=== PATIENT | female | born 1955 | race Caucasian/White ===

== ENCOUNTER → 2018-06-12 | Outpatient (REF) | payer OTHER ==
[2018-06-12 13:01] LABS: HEMOGLOBIN A1c 5.8 %
[2018-06-12 13:02] LABS: ALBUMIN 3.6 GM/DL (3.2-5.2); ALT/SGPT 20 U/L (12-78); BILIRUBIN,TOTAL 0.5 MG/DL (0.2-1.0); BLOOD UREA NITROGEN 13 MG/DL (7-18); CALCIUM LEVEL 8.4 MG/DL (8.8-10.2); CARBON DIOXIDE LEVEL 26 MEQ/L (21-32); CHLORIDE LEVEL 108 MEQ/L (98-107); CHOLESTEROL LEVEL 198 MG/DL (<200); CHOLESTEROL RISK RATIO 7.333 (<5); FOLATE 4.8 NG/ML; GLOMERULAR FILTRATION RATE > 60.0 (>45); GLUCOSE, FASTING 115 MG/DL (70-100); HDL CHOLESTEROL 27 MG/DL (>40); LDL CHOLESTEROL 113 MG/DL (<100); NON-HDL-C 171 MG/DL; POTASSIUM SERUM 4.5 MEQ/L (3.5-5.1); SODIUM LEVEL 141 MEQ/L (136-145); TRIGLYCERIDES LEVEL 290 MG/DL (<150); VITAMIN B12 LEVEL 339 PG/ML
== END ==
LOC: M SFHCCLAY 08:23
PROVIDERS: ATTEND Family Medicine
DX: R20.0 Anesthesia of skin (principal); Z13.1 Encounter for screening for diabetes mellitus; Z13.220 Encounter for screening for lipoid disorders; Z82.49 Family history of ischemic heart disease and other diseases of the circulatory system

== ENCOUNTER → 2018-07-09 | Outpatient (CLI) | payer OTHER ==
--- NOTE | 2018-07-09 14:19 | REP ---
BILATERAL LOWER EXTREMITY DUPLEX ARTERIAL ULTRASOUND: Real-time ultrasound evaluation and duplex Doppler interrogation of bilateral lower extremity arterial systems is performed. MIGUEL right is 0.58 and left 1.1. Scattered plaquing and narrowing is seen bilaterally. There is elevated peak systolic velocity in the distal right superficial femoral artery with mild phasic waveforms distal to that consistent with severe stenosis of the right distal SFA. No significant stenosis is seen of the left lower extremity arterial system. Biphasic, triphasic waveforms are seen in the right common femoral artery and proximal superficial femoral artery and throughout the left lower extremity arterial system. Right Peak Left Peak Systolic Velocity Systolic velocity Common femoral artery 95.5 cm/s 107.0 cm/s Profunda 103.0 cm/s 55.6 cm/s Proximal SFA 40.3 cm/s 91.5 cm/s Mid SFA 40.3 cm/s 77.7 cm/s Distal SFA 326.0 cm/s 88.6 cm/s Popliteal 34.3 cm/s 73.2 cm/s Proximal JORDAN 16.9 cm/s 25.0 cm/s Tibial peroneal trunk 16.2 cm/s 64.4 cm/s Proximal M48 M60 ARMOR CREWMAN 16.5 cm/s 62.7 cm/s Distal M48 M60 ARMOR CREWMAN 11.7 cm/s 47.6 cm/s Distal JORDAN 21.7 cm/s 34.0 cm/s IMPRESSION: Significant stenosis distal right SFA. No Duplex Doppler sonographic evidence of significant stenosis left lower extremity arterial system. Electronically Signed by Troy Mohan MD 07/09/2018 03:27 P
== END ==
LOC: M RAD 09:31
PROVIDERS: ATTEND Family Medicine
DX: R20.9 Unspecified disturbances of skin sensation (principal); R09.89 Other specified symptoms and signs involving the circulatory and respiratory systems; I70.201 Unspecified atherosclerosis of native arteries of extremities, right leg

== ENCOUNTER → 2018-07-23 | Outpatient (REF) | payer OTHER, SELFPAY ==
[2018-07-26 15:14] LABS: HPV HYBRID CAPTURE II Negative (Negative)
== END ==
LOC: M SFHCCLAY 07:32
PROVIDERS: ATTEND Family Medicine
DX: Z12.4 Encounter for screening for malignant neoplasm of cervix (principal)

== ENCOUNTER → 2018-12-26 | Outpatient (REF) | payer MEDICAID ==
[2018-12-26 16:39] LABS: BLOOD UREA NITROGEN 19 MG/DL (7-18); CALCIUM LEVEL 9.1 MG/DL (8.8-10.2); CARBON DIOXIDE LEVEL 30 MEQ/L (21-32); CHLORIDE LEVEL 104 MEQ/L (98-107); CREATININE FOR GFR 0.83 MG/DL (0.55-1.30); GLOMERULAR FILTRATION RATE > 60.0 (>45); GLUCOSE, FASTING 101 MG/DL (70-100); POTASSIUM SERUM 4.3 MEQ/L (3.5-5.1); SODIUM LEVEL 141 MEQ/L (136-145)
[2018-12-26 16:46] LABS: HEMATOCRIT 47.3 % (36.0-47.0); HEMOGLOBIN 15.8 g/dl (12.0-15.5); MEAN CORPUSCULAR HEMOGLOBIN 31.7 pg (27.0-33.0); MEAN CORPUSCULAR HGB CONC 33.4 g/dl (32.0-36.5); PLATELET COUNT, AUTOMATED 372 10^3/uL (150-450); RED BLOOD COUNT 4.98 10^6/uL (4.00-5.40); WHITE BLOOD COUNT 10.2 10^3/uL (4.0-10.0)
== END ==
LOC: M LABDRAWC 16:18
PROVIDERS: ATTEND Physician Assistant
DX: M79.671 Pain in right foot (principal); M79.672 Pain in left foot; I70.291 Other atherosclerosis of native arteries of extremities, right leg

== ENCOUNTER → 2019-01-30 | Outpatient (CLI) | payer OTHER ==
[~2019-01-30] MED LIST: ASPI81TA85 PO; HEPARIN 1,000 UNITS/ML 10ML VIAL (FOR RADIOLOGY& DIALYSIS ONLY) As Ordered ONE; ISOVUE-300 61% 50ML VIAL (Q9967) As Ordered ONE; LIDOCAINE 1% MDV 20ML VIAL As Ordered ONE; MIDAZOLAM INJ 2 MG/2 ML VIAL (J2250) As Ordered ONE; fentaNYL 100 MCG/2 ML INJECTION (J3010) As Ordered ONE; tylenol PO
[2019-01-30 07:47] LABS: ALBUMIN 3.3 GM/DL (3.2-5.2); ALT/SGPT 18 U/L (12-78); BILIRUBIN,TOTAL 0.4 MG/DL (0.2-1.0); BLOOD UREA NITROGEN 10 MG/DL (7-18); CALCIUM LEVEL 8.4 MG/DL (8.8-10.2); CARBON DIOXIDE LEVEL 26 MEQ/L (21-32); CHLORIDE LEVEL 108 MEQ/L (98-107); CREATININE FOR GFR 0.85 MG/DL (0.55-1.30); GLOMERULAR FILTRATION RATE > 60.0 (>45); GLUCOSE, FASTING 103 MG/DL (70-100); POTASSIUM SERUM 4.9 MEQ/L (3.5-5.1); SODIUM LEVEL 143 MEQ/L (136-145); TOTAL PROTEIN 6.6 GM/DL (6.4-8.2)
--- NOTE | 2019-01-30 08:20 | ROOPDOC ---
[facility] Report Of Operation Report of Operation DATE OF PROCEDURE: 01/30/19 PREPROCEDURE DIAGNOSES: Atherosclerosis the eek vessels with pain in legs. POSTPROCEDURE DIAGNOSES: Same. PROCEDURE: 1. Ultrasound-guided access right common femoral artery 2. Left lower extremity arteriogram from selection of left common femoral artery SURGEON: Joey Solano MD ANESTHESIA: Local anesthesia of 5 mL lidocaine. Moderate intravenous conscious sedation was supervised by Dr. Solano. The patient was independent we monitored by a registered nurse and signed in the department of radiology using automated blood pressure, EKG, and pulse oximetry. The detailed sedation record is permanently stored in the hospital information system. The following is the brief sedation record: Start time 07:48, stop time 08:02, Versed 1 mg IV, fentanyl 25 g IV. INDICATION FOR PROCEDURE: Ms. Orantes is a very pleasant 63-year-old patient who is status post right lower extremity arteriogram and intervention and now returns for arteriogram of the left lower extremity with potential intervention. The patient has symptoms in her legs and feet that are not consistent with arterial insufficiency, however if we can improve her symptoms at all by improving arterial flow we certainly would like to do so. On the right lower extremity, we did significantly improve her flow, but she still has some symptoms in the right leg. She says it is somewhat better. Hopefully we can offer her some relief in the left lower extremities well. Risks benefits and alternatives were explained to the patient and she is agreeable to proceed. Informed consent was obtained. INTERPRETATION: 1. Inflow was seen to be widely patent and left lower extremity on previous imaging. Her left common femoral artery, profunda, SFA are all widely patent. She has excellent runoff through to the profunda with 3 vessel runoff to the foot. The pedal arteries are widely patent. No stenoses noted and no intervention required. REPORT OF OPERATION: The patient was brought the angiographic suite in stable condition placed supine on the fluoroscopic table. Her bilateral groins were prepped and draped in sterile fashion. A timeout was performed. 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 Local anesthesia was administered to the skin and subcutaneous tissue over the right common femoral artery and a microneedle was used to access the artery under ultrasound guidance. A wire was passed through this access and the needle was removed. The micro-sheath was placed. The Glidewire was advanced through this access into the central system under fluoroscopic guidance. The sheath was exchanged for 6 Greenlandic sheath. A contractor catheter was advanced over the wire and we went up and over the bifurcation and the contrast catheter was advanced into the left common femoral artery. An arteriogram of the left lower extremity was performed please see in terpretation above. No intervention was needed. We retracted the catheter over wire and placed a Mynx closure device with good hemostasis. Pressure was held for 10 minutes and the patient was taken to recovery in stable condition. She tolerated the procedure well with no consultations. ESTIMATED BLOOD LOSS: Approximately 3 mL. COMPLICATIONS: None. PLAN: We will see the patient back in a week to check her access site. She will have a follow-up arterial duplex of the bilateral lower extremities in 1 month. She will follow up with Dr. Mooney regarding her foot pain. Okay to resume all home medications. JOEY SOLANO MD Jan 30, 2019 08:20
[2019-01-30 11:45] VITALS: BP 103/60
== END ==
LOC: M IRPRO 06:20
PROVIDERS: ATTEND Surgery Vascular Surgery
DX: I70.222 Atherosclerosis of native arteries of extremities with rest pain, left leg (principal); I70.212 Atherosclerosis of native arteries of extremities with intermittent claudication, left leg
CPT/HCPCS: 36246; 75710; 80053; 99152; C1760; C1769; C1887; C1894; G0269; J2250; J3010; Q9967

== ENCOUNTER → 2019-02-13 | Outpatient (REF) | payer OTHER ==
[~2019-02-13] MED LIST changes: -HEPARIN 1,000 UNITS/ML 10ML VIAL (FOR RADIOLOGY& DIALYSIS ONLY) As Ordered ONE; -ISOVUE-300 61% 50ML VIAL (Q9967) As Ordered ONE; -LIDOCAINE 1% MDV 20ML VIAL As Ordered ONE; -MIDAZOLAM INJ 2 MG/2 ML VIAL (J2250) As Ordered ONE; -fentaNYL 100 MCG/2 ML INJECTION (J3010) As Ordered ONE
[2019-03-16 12:21] LABS: THYROID STIMULATING HORMONE 2.08 uIU/ML (0.358-3.740)
[2019-03-16 12:23] LABS: FOLATE 2.6 NG/ML
== END ==
LOC: M SFHCCLAY 10:45
PROVIDERS: ATTEND Family Medicine
DX: G62.9 Polyneuropathy, unspecified (principal)

== ENCOUNTER → 2019-03-06 | Outpatient (CLI) | payer OTHER ==
--- NOTE | 2019-03-06 15:40 | REP ---
Bilateral lower extremity arterial Doppler ultrasound for claudication: Comparison is 07/09/2018. Right lower extremity: Brachial artery peak systole: 140 mmHg. Dorsalis pedis peak systole: 80 mmHg. INTERRELATED SPECIAL EDUCATION TEACHER peak systole: 30 mmHg. MIGUEL: 0.57 Peak Systolic Phasicity Velocity CRACKING STILL OPERATOR 182 triphasic Profunda 163 biphasic SFA prox occluded -- SFA mid occluded -- SFA dist occluded -- Pop 22 monophasic JORDAN prox 14 monophasic Tib/P tr 19 monophasic INTERRELATED SPECIAL EDUCATION TEACHER pr 13 monophasic INTERRELATED SPECIAL EDUCATION TEACHER dst 7 monophasic JORDAN dst 21 monophasic the Left lower extremity: The brachial artery peak systole: 140 mmHg. Dorsalis pedis peak systole: 100 mmHg. INTERRELATED SPECIAL EDUCATION TEACHER peak systole: 40 mmHg. MIGUEL: 0.71. Peak Systolic Phasicity Velocity CRACKING STILL OPERATOR 138 monophasic Profunda 55 monophasic SFA prox 66 monophasic SFA mid 67 monophasic SFA dist 82 monophasic Pop 110 monophasic JORDAN prox 17 monophasic Tib/P tr 54 monophasic INTERRELATED SPECIAL EDUCATION TEACHER pr 29 monophasic INTERRELATED SPECIAL EDUCATION TEACHER dst monophasic JORDAN dst 55 monophasic Impression: Right lower extremity: The SFA is occluded proximal to distal, however there is revascularization of the distal SFA/popliteal. There is monophasic flow throughout below the popliteal with a very slow flow distal to the popliteal, worse than the comparison study. Left lower extremity: There is monophasic flow throughout the entire left lower extremity. There is slow flow in the SFA that demonstrates an approximate 2:1 stenosis. Flow in the calf vessels is slow, particularly in the INTERRELATED SPECIAL EDUCATION TEACHER. This is also significantly worse than the prior study. Electronically Signed by Troy Boothe MD 03/06/2019 03:31 P
== END ==
LOC: M RAD 11:45
PROVIDERS: ATTEND Physician Assistant
DX: I70.213 Atherosclerosis of native arteries of extremities with intermittent claudication, bilateral legs (principal)

== ENCOUNTER → 2019-03-12 | Outpatient (REF) | payer OTHER ==
[2019-03-12 16:54] LABS: BLOOD UREA NITROGEN 10 MG/DL (7-18); C REACTIVE PROTEIN QUANTITATIV 1.51 MG/DL (0.00-0.30); CALCIUM LEVEL 8.5 MG/DL (8.8-10.2); CARBON DIOXIDE LEVEL 30 MEQ/L (21-32); CHLORIDE LEVEL 104 MEQ/L (98-107); CREATININE FOR GFR 0.77 MG/DL (0.55-1.30); GLOMERULAR FILTRATION RATE > 60.0 (>45); GLUCOSE, FASTING 96 MG/DL (70-100); POTASSIUM SERUM 4.3 MEQ/L (3.5-5.1); SODIUM LEVEL 139 MEQ/L (136-145)
[2019-03-12 16:59] LABS: HEMATOCRIT 41.7 % (36.0-47.0); MEAN CORPUSCULAR HEMOGLOBIN 31.7 pg (27.0-33.0); MEAN CORPUSCULAR HGB CONC 33.6 g/dl (32.0-36.5); MEAN CORPUSCULAR VOLUME 94.6 fl (80.0-96.0); PLATELET COUNT, AUTOMATED 367 10^3/uL (150-450); RED BLOOD COUNT 4.41 10^6/uL (4.00-5.40); WHITE BLOOD COUNT 9.8 10^3/uL (4.0-10.0)
[2019-03-12 17:36] LABS: ERYTHROCYTE SEDIMENTATION RATE 30 mm/hr (0-30)
== END ==
LOC: M LABDRAWC 16:05
PROVIDERS: ATTEND Physician Assistant
DX: I73.9 Peripheral vascular disease, unspecified (principal); M79.604 Pain in right leg; G62.9 Polyneuropathy, unspecified

== ENCOUNTER → 2019-04-15 | Outpatient (CLI) | payer OTHER ==
[~2019-04-15] MED LIST changes: +ACETAMINOPHEN 325 MG TAB PO PRN; +CLOP75TA2 PO; +CLOPIDOGREL 75 MG TAB As Ordered ONE; +CLOPIDOGREL 75 MG TAB PO ONE; +GABA-843 PO; +HEPARIN 1,000 UNITS/ML 10ML VIAL (FOR RADIOLOGY& DIALYSIS ONLY)(J1644-10) As Ordered ONE; +ISOVUE-300 61% 50ML VIAL (Q9967) As Ordered ONE; +LIDOCAINE 1% MDV 20ML VIAL As Ordered ONE; +MIDAZOLAM INJ 2 MG/2 ML VIAL (J2250) As Ordered ONE; +NS 1,000 ML IV SCH; +fentaNYL 100 MCG/2 ML INJECTION (J3010) As Ordered ONE
[2019-04-15 07:01] LABS: HEMATOCRIT 45.6 % (36.0-47.0); HEMOGLOBIN 14.9 g/dl (12.0-15.5); MEAN CORPUSCULAR HEMOGLOBIN 30.8 pg (27.0-33.0); MEAN CORPUSCULAR HGB CONC 32.7 g/dl (32.0-36.5); MEAN CORPUSCULAR VOLUME 94.4 fl (80.0-96.0); PLATELET COUNT, AUTOMATED 347 10^3/uL (150-450); RED BLOOD COUNT 4.83 10^6/uL (4.00-5.40); WHITE BLOOD COUNT 8.4 10^3/uL (4.0-10.0)
[2019-04-15 07:25] LABS: BLOOD UREA NITROGEN 21 MG/DL (7-18); CALCIUM LEVEL 8.7 MG/DL (8.8-10.2); CARBON DIOXIDE LEVEL 29 MEQ/L (21-32); CHLORIDE LEVEL 106 MEQ/L (98-107); CREATININE FOR GFR 0.78 MG/DL (0.55-1.30); GLOMERULAR FILTRATION RATE > 60.0 (>45); GLUCOSE, FASTING 115 MG/DL (70-100); POTASSIUM SERUM 4.3 MEQ/L (3.5-5.1); SODIUM LEVEL 142 MEQ/L (136-145)
--- NOTE | 2019-04-15 09:44 | ROOPDOC ---
[facility] Report Of Operation Report of Operation DATE OF PROCEDURE: 04/15/19 PREPROCEDURE DIAGNOSES: Atherosclerosis of the [place] vessels with lifestyle limiting claudication POSTPROCEDURE DIAGNOSES: Same PROCEDURE: 1. Ultrasound-guided access left common femoral artery 2. Aortoiliofemoral arteriogram and right lower extremity runoff from selection of the right common femoral artery 3. Attempt to cross chronic total occlusion right superficial femoral artery, aborted 4. Stent right common iliac artery with 8 x 37 express stent 5. Stent left common iliac artery with 8 x 57 express stent and extension to mid external iliac artery with 7 x 37 express stent and 6 x 37 express stent 6. Completion arteriograms 7. Mynx closure left common femoral artery SURGEON: Joey Solano MD ANESTHESIA: Local anesthesia 7 mL lidocaine. Moderate intravenous conscious sedation was supervised by Dr. Solano. The patient was independently monitored by registered nurse assigned to the Department of radiology using automated blood pressure, EKG, and pulse oximetry. The detailed sedation record is permanently stored in the hospital information system. The following is the brief sedation record: Start time 07:54, stop time 08:55, Versed 1 mg IV, fentanyl 50 g IV, heparin 3000 units IV. CONTRAST: 60 mL Isovue-300 INDICATION FOR PROCEDURE: This is a very pleasant 63-year-old patient who underwent angioplasty of her right superficial femoral artery a few months ago and was noted on follow-up arterial duplex to have occlusion of the SFA status post angioplasty. The patient has very small vessels, with significant plaque, b ut her post angioplasty images did not show residual stenosis and we elected not to place a stent at her last procedure. I discussed with her that if we're able to open the right superficial femoral artery, we will definitely stent at this time, but because her vessel sizes so diminutive below the groin, I'm worried that over time she may need a bypass. I discussed with her the option to proceed directly to bypass but the patient would prefer to try an endovascular approach first. I think this is reasonable. Additionally, we discussed that she did have some mild iliac stenosis that if this also looks worse today, we would plan to stent her iliacs to improve inflow. She is agreeable to this plan. Informed consent was obtained. INTERPRETATION: 1. The distal aorta is widely patent but there is a 50% stenosis a few centimeters distal to the right common iliac origin, and an 80% stenosis in the left common iliac artery with no post stenotic dilatation, but instead the vessel is diffusely narrowed down through the external iliac artery. 2. The right common femoral artery and profunda are widely patent. The origin of the right SFA is not visualized, but the SFA does reconstitute at David's canal through collaterals from the profunda, and there is widely patent inflow through the popliteal and tibial vessels, although they are all diminutive in size. 3. The origin of the right superficial femoral artery could not be visualized, but we attempted to cannulate it blindly for about 15 minutes, and then aborted. We will plan to do a right femoral to above-knee popliteal bypass. 4. After balloon-expandable stent placement in the right common iliac artery, the vessel had widely patent flow with no extravasation, embolization, or dissection. No residual stenosis noted. 5. Balloon-expandable stents were placed in the left common iliac artery and extended through to the mid distal external iliac artery with 1 cm overlap, starting with an 8 x 57 express proximally, 7 x 37 express mid, 6 x 37 express distally and there was widely patent flow post stenting with no dissection embolization or extravasation noted. No residual stenosis noted. REPORT OF OPERATION: The patient was brought the angiographic suite in stable condition. Her bilateral groins were prepped and draped in sterile fashion. A timeout was performed. Sedation was administered without compensation. Local anesthesia was administered to the skin and subcutaneous tissue over the left groin and a microneedle was used to access the left common femoral artery under ultrasound guidance. A wire was passed through this access under fluoroscopic guidance and a 4 Australian micro-sheath was placed and flushed with saline. We advanced Glidewire into the right under fluoroscopic guidance and an Omni flushed catheter was advanced over the wire. Aortoiliofemoral arteriograms were performed. Please interpretation above. We then went up and over the bifurcation with the Glidewire and on the flush catheter and selected the right common femoral artery. The right lower extremity runoff was performed. Please interpretation above. We exchanged the sheath for a 45 cm destination 6 Australian sheath over the wire using the Seldinger technique. We spent a considerable amount of time trying to cross into the origin of the occluded right superficial femoral artery, but unfortunately, we were unsuccessful. He could not visualize the origin, but did try to cannulate blindly, but were ultimately unsuccessful and this was aborted. We plan to do a right common femoral to above-knee popliteal bypass in the future. We then retracted the sheath to the aortic bifurcation and advanced an 8 x 37 express stent across the right common iliac stenosis. Adequate contrast injection confirmed the stent was in correct position and this was deployed under fluoroscopic guidance. Following this, there was widely patent flow through the right iliac system with no extravasation embolization or dissection. We then retracted the sheath into the mid left iliac system and advanced in 8 x 57 express stent across the common iliac artery up to but not through the origin. Placement of the stent was confirmed with adequate contrast injection. The stent was then deployed under fluoroscopic guidance. We did then exchanged that 6 Australian destination sheath for a 7 Australian sheath and flushed the sheath with saline. We then placed a 7 x 37 express stent with a 1 cm overlap, and extended this into the external iliac artery with a 6 x 37 express stent. All were postdilated with a 7 x 37 balloon. While placing the 7 x 37 express stent, the patient had an episode of bradycardia. We positive for a few minutes until her heart rate recovered. She remained asymptomatic but her heart rate was in the 40s for a minute. By the end of the procedure, her heart rate and blood pressure were both normal. She remained asymptomatic. No additional sedation was given during the case, only the initial sedation given prior to access. Following this there was widely patent flow through the left iliac system with no extravasation embolization or dissection noted. No residual stenosis was noted. Final imaging showed widely patent flow through both iliac systems and we then deployed and Mynx closure device in the left common femoral artery under fluoroscopic guidance with good hemostasis. Pressure was held on the left groin and sterile dressings were applied and the patient was taken to recovery in stable condition. ESTIMATED BLOOD LOSS: Approximately 5 mL. COMPLICATIONS: None. PLAN: Okay for patient to resume home medications and diet. We will give her a dose of Plavix in recovery, and she will continue this for 60 days process procedure. She will need a right femoral to above-knee popliteal bypass, and we will see her back in clinic to discuss the procedure. We will obtain a vein mapping of the lower extremities today while the patient is on postprocedure bed rest. She will need a stress test prior to the procedure with the cardiac clearance. We appreciate the opportunity to participate in the care of this patient. JOEY SOLANO MD Apr 15, 2019 09:44
--- NOTE | 2019-04-15 11:21 | REP ---
BILATERAL LOWER EXTREMITY DEEP VENOUS ULTRASOUND WITH VENOUS MAPPING: Real-time compression and duplex Doppler interrogation of bilateral lower extremity deep venous systems is performed. The bilateral common femoral, superficial femoral and popliteal veins are fully compressible with transducer pressure and demonstrate normal spontaneous and phasic flow without evidence of deep venous thrombosis. Measurements of the bilateral deep venous structures is requested. On the right greater saphenous vein measures 6 mm proximally, 3 mm in the mid to distal aspect, and at the level of the proximal calf, 1 mm in the mid calf and 2 mm in distal calf. The lesser saphenous vein measures 4 mm in the proximal and mid aspect and 3 mm distally. On the left the proximal greater saphenous vein measures 6 mm, mid aspect 4 mm, distal aspect 3 mm, also 3 mm in the proximal calf and 2 mm in the mid to distal calf. The lesser saphenous vein measures 3 mm throughout its course. Electronically Signed by Troy Mohan MD 04/15/2019 03:57 P
[2019-04-15 13:00] VITALS: BP 139/69
== END ==
LOC: M IRPRO 06:18
PROVIDERS: ATTEND Surgery Vascular Surgery
DX: I70.213 Atherosclerosis of native arteries of extremities with intermittent claudication, bilateral legs (principal); I70.92 Chronic total occlusion of artery of the extremities
CPT/HCPCS: 37221; 37223; 75710; 80048; 85027; 93970; 99152; 99153; C1760; C1769; C1876; C1887; C1894; J1644; J2250; J3010; Q9967

== ENCOUNTER → 2019-04-28 | Outpatient (REF) | payer OTHER ==
[~2019-04-28] MED LIST changes: -ACETAMINOPHEN 325 MG TAB PO PRN; -CLOPIDOGREL 75 MG TAB As Ordered ONE; -CLOPIDOGREL 75 MG TAB PO ONE; -HEPARIN 1,000 UNITS/ML 10ML VIAL (FOR RADIOLOGY& DIALYSIS ONLY)(J1644-10) As Ordered ONE; -ISOVUE-300 61% 50ML VIAL (Q9967) As Ordered ONE; -LIDOCAINE 1% MDV 20ML VIAL As Ordered ONE; -MIDAZOLAM INJ 2 MG/2 ML VIAL (J2250) As Ordered ONE; -NS 1,000 ML IV SCH; -fentaNYL 100 MCG/2 ML INJECTION (J3010) As Ordered ONE
[2019-04-28 15:48] LABS: HEMOGLOBIN A1c 5.8 %
[2019-04-28 15:56] LABS: RHEUMATOID FACTOR QUANT < 10.0 IU/ML (<15.0); TOTAL PROTEIN 7.4 GM/DL (6.4-8.2)
[2019-04-30 14:25] LABS: ALBUMIN 4.14 GM/DL (3.29-5.55); ALBUMIN % 55.9 % (55.8-66.1); ALPHA-1-GLOBULIN % 6.1 % (2.9-4.9); ALPHA-1-GLOBULINS 0.45 GM/DL (0.17-0.41); ALPHA-2-GLOBULINS 0.94 GM/DL (0.42-0.99); ALPHA-2-GLOBULINS % 12.7 % (7.1-11.8); BETA-1-GLOBULINS 0.48 GM/DL (0.28-0.60); BETA-1-GLOBULINS % 6.5 % (4.7-7.2); BETA-2-GLOBULINS 0.64 GM/DL (0.19-0.55); BETA-2-GLOBULINS % 8.7 % (3.2-6.5); GAMMA GLOBULIN % 10.1 % (11.1-18.8); GAMMA GLOBULINS 0.75 GM/DL (0.65-1.58)
== END ==
LOC: M LABNEURO 15:06
PROVIDERS: ATTEND Psychiatry & Neurology Neurology
DX: G62.9 Polyneuropathy, unspecified (principal)

== ENCOUNTER 2019-05-13 09:52 | Emergency (ER) | payer OTHER ==
[~2019-05-13] VITALS: Ht 157.5 cm; Wt 55.9 kg
[2019-05-13 11:01] LABS: BASO # 0.1 10^3/uL (0.0-0.2); BASO % 0.5 % (0.0-1.0); EOS # 0.1 10^3/uL (0.0-0.5); EOS % 0.4 % (0.0-3.0); HEMOGLOBIN 13.4 g/dl (12.0-15.5); LYMPH # 1.4 10^3/uL (1.5-5.0); LYMPH % 11.5 % (24.0-44.0); MEAN CORPUSCULAR HEMOGLOBIN 31.1 pg (27.0-33.0); MEAN CORPUSCULAR HGB CONC 33.5 g/dl (32.0-36.5); MEAN CORPUSCULAR VOLUME 92.8 fl (80.0-96.0); MONO # 0.8 10^3/uL (0.0-0.8); MONO % 7.1 % (0.0-5.0); NEUTROPHILS # 9.4 10^3/uL (1.5-8.5); NEUTROPHILS % 80.1 % (36.0-66.0); PLATELET COUNT, AUTOMATED 380 10^3/uL (150-450); RED BLOOD COUNT 4.31 10^6/uL (4.00-5.40); WHITE BLOOD COUNT 11.7 10^3/uL (4.0-10.0)
[2019-05-13 11:14] LABS: INR 1.04; PROTHROMBIN TIME 13.3 SECONDS (11.8-14.0)
--- NOTE | 2019-05-13 11:32 | REP ---
CHEST, SINGLE VIEW: There is no evidence of acute infiltrate. No pleural effusion is seen. The heart is normal in size. The mediastinal silhouette is unremarkable. The visualized osseous structures are intact. IMPRESSION: No acute pulmonary disease. Electronically Signed by Troy Mohan MD 05/13/2019 11:42 A
[2019-05-13 11:42] LABS: ALBUMIN 3.5 GM/DL (3.2-5.2); ALT/SGPT 33 U/L (12-78); BILIRUBIN,DIRECT 0.1 MG/DL (0.0-0.2); BILIRUBIN,TOTAL 0.4 MG/DL (0.2-1.0); BLOOD UREA NITROGEN 11 MG/DL (7-18); CALCIUM LEVEL 8.9 MG/DL (8.8-10.2); CARBON DIOXIDE LEVEL 27 MEQ/L (21-32); CHLORIDE LEVEL 105 MEQ/L (98-107); CK-MB VALUE MASS 24.2 NG/ML (<3.6); CPK CREATINE PHOSPHOKINASE 103 U/L (26-192); CREATININE FOR GFR 0.65 MG/DL (0.55-1.30); GLOMERULAR FILTRATION RATE > 60.0 (>45); GLUCOSE, FASTING 103 MG/DL (70-100); NT-PRO BNP 872 PG/ML (<125); POTASSIUM SERUM 4.3 MEQ/L (3.5-5.1); SODIUM LEVEL 137 MEQ/L (136-145); TOTAL PROTEIN 7.1 GM/DL (6.4-8.2); TROPONIN I < 0.02 NG/ML (< 0.10)
--- NOTE | 2019-05-13 11:52 | REP ---
BILATERAL SHOULDER SERIES: Three views of bilateral shoulders performed. No fracture or dislocation is seen. There is fairly severe narrowing of the right acromioclavicular joint with moderate spurring. There is a moderate degree of narrowing of the left acromioclavicular joint with mild spurring. There are no other significant findings. 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 No fracture or dislocation. Electronically Signed by Troy Mohan MD 05/13/2019 12:14 P
[2019-05-13] MEDS ORDERED: KETOROLAC 30 MG/ML VIAL (J1885) IV ONE (12:30)
[2019-05-13 13:40] LABS: C REACTIVE PROTEIN QUANTITATIV 9.45 MG/DL (0.00-0.30)
[2019-05-13] MEDS ORDERED: dexameTHASONE 20MG/5ML VIAL (J1100 PER 1MG) IV ONE (13:45)
[2019-05-13 14:02] LABS: ERYTHROCYTE SEDIMENTATION RATE 56 mm/hr (0-30)
[2019-05-13 14:21] LABS: CK-MB VALUE MASS 20.1 NG/ML (<3.6); CPK CREATINE PHOSPHOKINASE 90 U/L (26-192); MB/CK RELATIVE INDEX 22.33 (< OR =4); TROPONIN I < 0.02 NG/ML (< 0.10)
[2019-05-13] MEDS ORDERED: PRED10TA2 PO (15:53)
[2019-05-13 16:15] VITALS: BP 138/66
--- NOTE | 2019-05-13 19:41 | ECGEPIP ---
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
== END 2019-05-13 16:41 | disposition home or self-care (01) ==
LOC: M ED 09:52
DX: M35.3 Polymyalgia rheumatica (principal); J06.9 Acute upper respiratory infection, unspecified; M19.011 Primary osteoarthritis, right shoulder; M19.012 Primary osteoarthritis, left shoulder; G62.9 Polyneuropathy, unspecified; F17.210 Nicotine dependence, cigarettes, uncomplicated; Z79.01 Long term (current) use of anticoagulants; Z79.82 Long term (current) use of aspirin; Z79.899 Other long term (current) drug therapy
CPT/HCPCS: 71045; 73030; 80048; 80076; 82550; 82553; 83880; 84443; 85025; 85610; 85652; 86140; 87040; 87486; 87581; 87633; 87798; 93005; 93041; 94760; 96374; 96375; 99285; J1100; J1885; U0002

== ENCOUNTER → 2019-06-11 | Outpatient (CLI) | payer OTHER ==
[~2019-06-11] MED LIST changes: +NON-325T5 PO; +PRED10TA2 PO
--- NOTE | 2019-06-12 02:32 | REP ---
Clinical: Carotid bruit. Technique: Mohan scale and color Doppler evaluation using linear high frequency transducer Findings: Two-dimensional mohan scale and color images demonstrate mild mixed atheromatous plaquing at the bilateral carotid bulbs and proximal internal carotid arteries with normal with laminar flow and no appreciable narrowing. Color Doppler interrogation demonstrates normal arterial wave patterns and velocities with no significant spectral broadening. Reversed flow noted in the left vertebral artery. RIGHT (cm/s) LEFT (cm/s) ICA peak systolic velocity 74.9 66.7 ICA diastolic velocity 27.7 24.4 ECA peak systolic velocity 74.2 92.6 CCA peak systolic velocity 76.6 87.4 ICA/CCA ratio 0.98 0.76 Impression: 1. No hemodynamically significant areas of narrowing or stenosis appreciated. 2. Reversed flow noted in the left vertebral artery. Electronically Signed by Rosalino Waldron MD 06/12/2019 02:24 A
== END ==
LOC: M RAD 08:09
PROVIDERS: ATTEND Internal Medicine Cardiovascular Disease
DX: Z01.818 Encounter for other preprocedural examination (principal)

== ENCOUNTER → 2019-06-15 | Outpatient (CLI) | payer OTHER ==
[~2019-06-15] MED LIST changes: +ATOR40TA75 PO; +CENT1TAB PO; +PERCOCET PO
== END ==
LOC: M LABSMTC 11:53
PROVIDERS: ATTEND Anesthesiology
DX: Z11.59 Encounter for screening for other viral diseases (principal)

== ENCOUNTER 2019-06-18 10:31 | Inpatient (IN) | payer OTHER ==
--- NOTE | 2019-06-12 09:23 | HPEPDOC ---
[facility] Medical History & Physical Date of Admission June 18, 2019 Date of Service: June 18, 2019 History and Physical Vascular surgery. Dr. Solano HPI: The patient is a 63-year-old female with lifestyle limiting claudication, status post right lower extremity arteriogram 01/20/19 with angioplasty right SF A. Status post left lower extremity arteriogram 01/30/19 with no intervention necessary, all of her blood vessels has been noted to be extremely diminutive in size. Most recent angiogram 04/15/[address] Solano status post stent right common iliac, left common iliac with attempt to cause chronic total occlusion of the right SFA aborted. Recommendation as per Dr. Solano was to proceed with right femoral to above-knee popliteal bypass with in situ vein. In preparation for the patient's surgical procedure medical and cardiac clearance with stress test has been obtained, copies are placed with the chart. The pt is a former smoker The pt is on ASA/Plavix/statin. Denies any fevers, chills, weakness, fatigue, Headache, Chest Pain, Shortness of breath, cough, palpitations, abdominal pain, N/V/D or changes in bowel or bladder habits. PMHx: PAD Dyslipidemia Peripheral neuropathy Colon polyps PSHX: Knee arthroscopy SOCHX: Former smoker FAMHX: Mother: History of cancer Father: History of hypertension, diabetes, CAD ROS: As noted in HPI, otherwise 11pt ROS of systems reviewed and unremarkable. PE: Exam: Const: Appears healthy and well developed. No signs of apparent distress present. Head/Face: Normal on inspection. ENMT: Tympanic membranes: intact. External nose WNL. Neck: Supple, Resp: No wheezing. Clear to auscultation bilaterally. CV: Rate is regular. Rhythm is regular. Biphasic DP/PT on the left, monophasic right DP/PT. Abdomen: Soft, NT, ND, no guarding, rigidity, rebound. No organomegaly or palpable mass/aneurysm. Lymph: No palpable or visible regional lymphadenopathy. Musculo: Wide-based gait. Patient is using AFO braces. Skin: No rashes or lesions Neuro:Alert and oriented x3, moves all extremities equally, no focal neurologic deficits noted. Psych: Pleasant and cooperative Reason for Patient Visit: ATHEROSCLEROSIS OF SQUAXIN VESSELS DATE OF PROCEDURE: 3/4/20 PROCEDURE: 1. Ultrasound-guided access left common femoral artery 2. Aortoiliofemoral arteriogram and right lower extremity runoff from selection of the right common femoral artery 3. Attempt to cross chronic total occlusion right superficial femoral artery, aborted 4. Stent right common iliac artery with 8 x 37 express stent 5. Stent left common iliac artery with 8 x 57 express stent and extension to mid external iliac artery with 7 x 37 express stent and 6 x 37 express stent 6. Completion arteriograms 7. Mynx closure left common femoral artery INDICATION FOR PROCEDURE: This is a very pleasant 63-year-old patient who underwent angioplasty of her right superficial femoral artery a few months ago and was noted on follow-up arterial duplex to have occlusion of the SFA status post angioplasty. The patient has very small vessels, with significant plaque, b ut her post angioplasty images did not show residual stenosis and we elected not to place a stent at her last procedure. I discussed with her that if we're able to open the right superficial femoral artery, we will definitely stent at this time, but because her vessel sizes so diminutive below the groin, I'm worried that over time she may need a bypass. I discussed with her the option to proceed directly to bypass but the patient would prefer to try an endovascular approach first. I think this is reasonable. Additionally, we discussed that she did have some mild iliac stenosis that if this also looks worse today, we would plan to stent her iliacs to improve inflow. She is agreeable to this plan. Informed consent was obtained. INTERPRETATION: 1. The distal aorta is widely patent but there is a 50% stenosis a few centimeters distal to the right common iliac origin, and an 80% stenosis in the left common iliac artery with no post stenotic dilatation, but instead the vessel is diffusely narrowed down through the external iliac artery. 2. The right common femoral artery and profunda are widely patent. The origin of the right SFA is not visualized, but the SFA does reconstitute at David's canal through collaterals from the profunda, and there is widely patent inflow through the popliteal and tibial vessels, although they are all diminutive in size. 3. The origin of the right superficial femoral artery could not be visualized, but we attempted to cannulate it blindly for about 15 minutes, and then aborted. We will plan to do a right femoral to above-knee popliteal bypass. 4. After balloon-expandable stent placement in the right common iliac artery, the vessel had widely patent flow with no extravasation, embolization, or dissection. No residual stenosis noted. 5. Balloon-expandable stents were placed in the left common iliac artery and extended through to the mid distal external iliac artery with 1 cm overlap, starting with an 8 x 57 express proximally, 7 x 37 express mid, 6 x 37 express distally and there was widely patent flow post stenting with no dissection embolization or extravasation noted. No residual stenosis noted. REPORT OF OPERATION: The patient was brought the angiographic suite in stable condition. Her bilateral groins were prepped and draped in sterile fashion. A timeout was performed. Sedation was administered without compensation. Local anesthesia was administered to the skin and subcutaneous tissue over the left groin and a microneedle was used to access the left common femoral artery under ultrasound guidance. A wire was passed through this access under fluoroscopic guidance and a 4 [place] micro-sheath was placed and flushed with saline. We advanced Glidewire into the right under fluoroscopic guidance and an Omni flushed catheter was advanced over the wire. Aortoiliofemoral arteriograms were performed. Please interpretation above. We then went up and over the bifurcation with the Glidewire and on the flush catheter and selected the right common femoral artery. The right lower extremity runoff was performed. Please interpretation above. We exchanged the sheath for a 45 cm destination 6 [place] sheath over the wire using the Seldinger technique. We spent a considerable amount of time trying to cross into the origin of the occluded right superficial femoral artery, but unfortunately, we were unsuccessful. He could not visualize the origin, but did try to cannulate blindly, but were ultimately unsuccessful and this was aborted. We plan to do a right common femoral to above-knee popliteal bypass in the future. We then retracted the sheath to the aortic bifurcation and advanced an 8 x 37 express stent across the right common iliac stenosis. Adequate contrast injection confirmed the stent was in correct position and this was deployed under fluoroscopic guidance. Following this, there was widely patent flow through the right iliac system with no extravasation embolization or dissection. We then retracted the sheath into the mid left iliac system and advanced in 8 x 57 express stent across the common iliac artery up to but not through the origin. Placement of the stent was confirmed with adequate contrast injection. The stent was then deployed under fluoroscopic guidance. We did then exchanged that 6 [place] destination sheath for a 7 [place] sheath and flushed the sheath with saline. We then placed a 7 x 37 express stent with a 1 cm overlap, and extended this into the external iliac artery with a 6 x 37 express stent. All were postdilated with a 7 x 37 balloon. While placing the 7 x 37 express stent, the patient had an episode of bradycardia. We positive for a few minutes until her heart rate recovered. She remained asymptomatic but her heart rate was in the 40s for a minute. By the end of the procedure, her heart rate and blood pressure were both normal. She remained asymptomatic. No additional sedation was given during the case, only the initial sedation given prior to access. Following this there was widely patent flow through the left iliac system with no extravasation embolization or dissection noted. No residual stenosis was noted. Final imaging showed widely patent flow through both iliac systems and we then deployed and Mynx closure device in the left common femoral artery under fluoroscopic guidance with good hemostasis. Pressure was held on the left groin and sterile dressings were applied and the patient was taken to recovery in stable condition. PLAN: Okay for patient to resume home medications and diet. We will give her a dose of Plavix in recovery, and she will continue this for 60 days process procedure. She will need a right femoral to above-knee popliteal bypass, and we will see her back in clinic to discuss the procedure. We will obtain a vein mapping of the lower extremities today while the patient is on postprocedure bed rest. She will need a stress test prior to the procedure with the cardiac clearance. We appreciate the opportunity to participate in the care of this patient. JOEY SOLANO MD Apr 15, 2019 09:44 BILATERAL LOWER EXTREMITY DEEP VENOUS ULTRASOUND WITH VENOUS MAPPING: Real-time compression and duplex Doppler interrogation of bilateral lower extremity deep venous systems is performed. The bilateral common femoral, superficial femoral and popliteal veins are fully compressible with transducer pressure and demonstrate normal spontaneous and phasic flow without evidence of deep venous thrombosis. Measurements of the bilateral deep venous structures is requested. On the right greater saphenous vein measures 6 mm proximally, 3 mm in the mid to distal aspect, and at the level of the proximal calf, 1 mm in the mid calf and 2 mm in distal calf. The lesser saphenous vein measures 4 mm in the proximal and mid aspect and 3 mm distally. On the left the proximal greater saphenous vein measures 6 mm, mid aspect 4 mm, distal aspect 3 mm, also 3 mm in the proximal calf and 2 mm in the mid to distal calf. The lesser saphenous vein measures 3 mm throughout its course. Electronically Signed by Troy Mohan MD 04/15/2019 03:57 P A&P: 1. Atherosclerosis of tunica-biloxi vessels of the lower extremities/plan for right femoral to above-knee popliteal bypass with in situ vein as per Dr. Solano 06/18/19. Vein mapping was obtained 04/15/19 and has been reviewed by Dr. Solano in preparation for the procedure. Medical clearance has been obtained from the patient's PCP and displaced to the chart. Cardiac clearance has been obtained with stress study, this is placed at the chart. Informed consent has been obtained and is placed in chart. Transfusion consent is placed in chart. The patient is nothing by mouth. The patient remains on aspirin/statin. Plavix is temporarily on hold preoperatively with plan to restart postoperatively. CBC, BMP, INR, PTT, type and screen. IV fluids as per anesthesia. Ancef 2 g IV preoperatively. Vital Signs Admission vital signs pending. Laboratory Data Labs 24H Admission labs pending. Home Medications Scheduled Aspirin (Aspir 81) 81 Mg Tablet.dr, 1 TAB PO DAILY for pain Clopidogrel Bisulfate (Clopidogrel) 75 Mg Tablet, 75 MG PO DAILY Gabapentin (Gabapentin) 300 Mg Capsule, 300 MG PO TID Scheduled PRN Acetaminophen (Acetaminophen) 325 Mg Tablet, 325 MG PO PRN PRN for PAIN Allergies Coded Allergies: No Known Allergies (Unverified , 06/04/19) A-FIB/CHADSVASC A-FIB History Current/History of A-Fib/PAF?: No Current PO Anticoag Therapy: No Olga Guerra June 12, 2019 09:23
[~2019-06-18] VITALS: Ht 157.5 cm; Wt 55.2 kg
[~2019-06-18 10:31] MED LIST changes: -ATOR40TA75 PO; -CENT1TAB PO; +LR 1,000 ML IV ONE; -PERCOCET PO; +ceFAZolin SOD 2 GM in IV 1 EA IV ONE
[2019-06-18] MEDS ORDERED: ATOR40TA75 PO (11:09)
[2019-06-18] MEDS ORDERED: CENT1TAB PO (11:09)
[2019-06-18 11:25] LABS: HEMATOCRIT 41.7 % (36.0-47.0); HEMOGLOBIN 13.4 g/dl (12.0-15.5); MEAN CORPUSCULAR HEMOGLOBIN 30.2 pg (27.0-33.0); MEAN CORPUSCULAR HGB CONC 32.1 g/dl (32.0-36.5); MEAN CORPUSCULAR VOLUME 94.1 fl (80.0-96.0); PLATELET COUNT, AUTOMATED 421 10^3/uL (150-450); RED BLOOD COUNT 4.43 10^6/uL (4.00-5.40); WHITE BLOOD COUNT 7.5 10^3/uL (4.0-10.0)
[2019-06-18 11:40] LABS: INR 0.98; PROTHROMBIN TIME 12.7 SECONDS (11.8-14.0)
[2019-06-18 11:41] LABS: PARTIAL THROMBOPLASTIN TIME 27.2 SECONDS (25.0-38.4)
[2019-06-18 12:04] LABS: BLOOD UREA NITROGEN 17 MG/DL (7-18); CALCIUM LEVEL 9.2 MG/DL (8.8-10.2); CARBON DIOXIDE LEVEL 31 MEQ/L (21-32); CHLORIDE LEVEL 105 MEQ/L (98-107); CREATININE FOR GFR 0.74 MG/DL (0.55-1.30); GLOMERULAR FILTRATION RATE > 60.0 (>45); GLUCOSE, FASTING 99 MG/DL (70-100); POTASSIUM SERUM 4.2 MEQ/L (3.5-5.1); SODIUM LEVEL 141 MEQ/L (136-145)
[2019-06-18] MEDS ORDERED: THROMBIN SOLN 20,000 UNITS KIT As Ordered ONE (12:59)
[2019-06-18] MEDS ORDERED: ISOVUE-300 61% 50ML VIAL As Ordered ONE (13:00)
[2019-06-18] MEDS ORDERED: HEPARIN SOD (PORCINE) 5000UNITS/ML VIAL (J1644 PER 1000UNITS) As Ordered ONE ×2 (13:00→13:05)
[2019-06-18] MEDS ORDERED: BUPIVACAINE/EPIN 0.5% 30 ML VIAL As Ordered ONE (13:00)
[2019-06-18] MEDS ORDERED: MIDAZOLAM INJ 2MG/2ML VIAL (J2250 PER 1MG) As Ordered ONE (13:05)
[2019-06-18] MEDS ORDERED: ONDANSETRON 4MG/2ML VIAL As Ordered ONE (13:05)
[2019-06-18] MEDS ORDERED: propofoL 200 MG/20 ML VIAL As Ordered ONE (13:05)
[2019-06-18] MEDS ORDERED: LIDOCAINE 2% 100MG/5ML SDV (FOR ANES.) As Ordered ONE (13:05)
[2019-06-18] MEDS ORDERED: dexameTHASONE 4 MG/ML 1ML VIAL (J1100 PER 1MG) As Ordered ONE (13:05)
[2019-06-18] MEDS ORDERED: fentaNYL 250 MCG/5 ML INJECTION (J3010) As Ordered ONE (13:05)
[2019-06-18] MEDS ORDERED: ROCURONIUM BROMIDE 50 MG/5 ML VIAL As Ordered ONE ×2 (13:05→14:40)
[2019-06-18] MEDS ORDERED: SUGAMMADEX SODIUM 500 MG/5 ML VIAL (BRIDION) As Ordered ONE (14:01)
[2019-06-18] MEDS ORDERED: PHENYLephrine HCL 500 MCG/5 ML (100MCG/ML) SYRINGE (J2370) As Ordered ONE (14:12)
[2019-06-18] MEDS ORDERED: HYDROmorphone HCL 2 MG/ML 1ML VIAL (J1170) As Ordered ONE (14:29)
[2019-06-18] MEDS ORDERED: ACETAMINOPHEN 1000MG 100ML IV BTL (OFIRMEV) (J0131 PER 10MG) As Ordered ONE (15:53)
[2019-06-18] MEDS ORDERED: SEVOFLURANE INHAL SOLN 250 ML BTL As Ordered ONE (17:02)
[2019-06-18] MEDS ORDERED: ceFAZolin 2 GM/D5W 50 ML IV BAG (J0690 PER 500MG) As Ordered ONE (17:15)
--- NOTE | 2019-06-18 18:02 | ROOPDOC ---
[facility] Report Of Operation Report of Operation DATE OF PROCEDURE: 06/18/19 PREPROCEDURE DIAGNOSES: Atherosclerosis in the vessels with lifestyle limiting claudication of the right lower extremity POSTPROCEDURE DIAGNOSES: Same PROCEDURE: 1. Right femoral to above-knee popliteal bypass with in situ greater saphenous vein 2. Right lower extremity arteriogram SURGEON: Joey Solano MD ANESTHESIA: Gen. anesthesia and local anesthesia 30 mL Marcaine with epinephrine INDICATION FOR PROCEDURE: This is a very pleasant 63-year-old patient with atherosclerosis of the picayune vessels and lifestyle limiting claudication of the right lower extremity with leg pain. We attempted endovascular revascularization of her right lower extremity, but this failed shortly after angioplasty. Upon repeat imaging, we noted the patient had complete occlusion of her right gallagher perficial femoral artery from the origin to just above the knee, where she had flow from collaterals from the profunda to the above-knee popliteal segment. We discussed the risks benefits and alternatives to a right femoral to popliteal bypass with in situ vein and she was agreeable to proceed. Informed consent was obtained. REPORT OF OPERATION: Patient was brought to the OR in stable condition. Gen. Anesthesia and antibiotics were administered without complication. Her right groin and entire right lower extremity were prepped and draped in a sterile fashion. A timeout was performed. An oblique incision was made over the right inguinal ligament and carried down to the subcutaneous tissue with Bovie cautery. Bridging veins were suture ligated and divided. We continue down through the fascial layers to the femoral sheath. This was opened longitudinally. The femoral vessels were skeletonized proximally and distally. Vesseloops were placed around the circumflex vessels, the profunda, and the SFA. We then skeletonized the femoral vein and the greater saphenous vein at its origin. There were several branches off of the proximal greater saphenous vein and these were suture ligated and divided. There were also some branches just distal to the origin which were clipped and ligated. We then turned our attention to the above-knee popliteal artery. A bump was placed under the leg to position it and a longitudinal incision was made on the lower medial thigh just above the knee. This was carried down to the subcutaneous tissue cautiously with Bovie cautery. We did not encounter the saphenous vein and initially on this dissection. We proceeded down to the fascia and incised the fascia and then retracted the posterior tissue and identified the popliteal artery. This was skeletonized proximally and distally. Vesseloops were placed around the proximal and distal popliteal artery as well as several collateral vessels that were feeding into it. We took great care to preserve all collaterals. We dissected posteriorly in her incision until we identify the greater saphenous vein. This was skeletonized proximally and distally. A distal branch point was suture l igated. We then turned our attention back to the femoral vessels. 5000 units of heparin was given and allowed to circulate. A clamp was placed at the origin of the greater saphenous vein on the common femoral vein. A 5-0 Prolene suture was used to close off the vein and a mattress fashion just under the clamp. We then utilized an 11 blade to excise the greater saphenous vein from the femoral vein. A bulldog clamp was placed for hemostasis on the greater saphenous vein. We then removed the clamp on the femoral vein and oversewed cut edge of the femoral vein for final hemostasis. Good hemostasis was noted. We then inverted the greater saphenous vein and the proximal valves were lysed. We then placed a clamp on the proximal common femoral artery and the Vesseloops on the femoral vessels were secured and an arteriotomy was made. There was some intimal hyperplasia noted and there was a local endarterectomy that was performed carefully. Once we were satisfied with her endarterectomy, we anastomosed the proximal greater saphenous vein to the femoral artery with a running 5-0 Prolene suture. Before the final sutures were placed, we flushed the inflow and outflow of the artery. We irrigated with copious heparinized saline. We then placed her final sutures and we restored flow. Good hemostasis was noted. Next, we returned to her popliteal incision and the distal saphenous vein was ligated at the branch point in the branch points were connected to make a larger patch. We then inserted a valvulotome up to but not through our proximal greater saphenous vein anastomosis in the valves were lysed. We did this a second and third time as well while injecting heparinized saline. We then used a valvulotome to perform an arteriogram within the saphenous vein to check for branches. Aluminate tape was placed in the leg and fluoroscopy was used with a contrast injection through the vein to identify branch points. These were marked on the [place] tape. We then made 1 small incision on the thigh and identified the saphenous vein and a large branch. The branch was clipped. We then performed a second arteriogram and noted one other small branch proximal to this. Through the same incision, we were able to identify the small branch and clipped this as well. Following this, there was widely patent flow through the femoral artery into the profunda and the bypass with no other branches identified. There was brisk pulsatile flow through the vein. We then flushed the vein bypass with heparinized saline and a bulldog clamp was placed. Additional heparin was given and allowed to circulate. We secured the Vesseloops at the popliteal artery and an arteriotomy was made. Following this, the end of the vein was anastomosed to the artery and an end-to-side fashion with 6-0 Prolene suture. Before the final sutures are placed, we flushed the inflow in the outflow of the artery as well as the bypass irrigated with heparinized saline. We then completed the anastomosis and good hemostasis was noted. Next, we checked the flow with Doppler and found triphasic flow distal to the bypass in the popliteal artery and within the bypass. The patient had palpable pulses at the foot. We then irrigated all incisions with copious amounts of saline. Surgicel was used to help with hemostasis around the vein harvest sites along with gentle pressure. We then irrigated again with warm saline. We anesthetized the incisions with Marcaine with epinephrine local a nesthesia. We closed the groin in 4 layers. The femoral sheath was closed with 2-0 Vicryl suture. The deep fascia was closed with 2-0 Vicryl suture. The superficial fascia was closed with 2-0 Vicryl suture. The deep dermal layer was closed with interrupted 3-0 Vicryl suture. The skin was closed with phoebe. The small thigh incision was closed with 2 layers of Vicryl suture and skin was closed with phoebe. The popliteal incision was closed in multiple layers. The vein harvest site was closed with running Vicryl suture to close the space. We then closed soft tissue around the vein bypass to protect it with 2-0 Vicryl suture. We then closed the fascia with a running 2-0 Vicryl suture. The deep dermal layer was then closed with interrupted 3-0 Vicryl suture. The skin was closed with pheobe. All incisions were cleaned and dried. 4 x 4's and Tegaderms were placed over the incisions. The patient was allowed to awaken from anesthesia was taken to recovery in stable condition. She tolerated the procedure and the anesthesia well. ESTIMATED BLOOD LOSS: Approximately 75 mL. COMPLICATIONS: None. PLAN: The patient will be on bedrest until morning and we will get her out of bed in the morning and discontinue her Perez as well. After Perez is discontinued it is okay straight cath every 6 hours when necessary no urine output. She will be able to ambulate, but we would like to avoid strenuous exercise or lifting greater than 5-10 pounds for 2 weeks postprocedure. She should elevate her leg to diminish swelling. Neurovascular checks with vital signs please. Okay to continue home medications including aspirin and Plavix and restart high-protein diet. We will admit to hospitalist service and continue to follow as a consult. We are grateful to the hospitalist service excellent care of our patients. JOEY SOLANO MD June 18, 2019 18:02
[2019-06-18] MEDS ORDERED: PERCOCET 5MG/325MG TAB PO PRN ×2 (18:15→18:30)
[2019-06-18] MEDS ORDERED: HYDROmorphone 2 MG TAB PO PRN (18:15)
[2019-06-18] MEDS ORDERED: diazePAM 5 MG TAB PO PRN (18:15)
[2019-06-18] MEDS ORDERED: LR 1,000 ML IV SCH (18:30)
[2019-06-18] MEDS ORDERED: MEPERIDINE INJ 25 MG/ML VIAL (J2175) IV PRN (18:30)
[2019-06-18] MEDS ORDERED: ONDANSETRON 4MG/2ML VIAL IV PRN (18:30)
[2019-06-18] MEDS ORDERED: fentaNYL 100 MCG/2 ML INJECTION (J3010) IV PRN (18:30)
[2019-06-18] MEDS ORDERED: METOCLOPRAMIDE INJ 10MG/2ML VIAL (J2765 PER 1) IV PRN (18:30)
[2019-06-18 20:00] VITALS: BP 155/80
[2019-06-18 20:45] VITALS: BP 140/79
[2019-06-18] MEDS: ATORVASTATIN 20 MG TAB PO SCH (20:53)
[2019-06-18] MEDS: GABAPENTIN 300 MG CAP PO SCH (20:53)
[2019-06-18 21:15] VITALS: BP 137/76
[2019-06-18 22:00] VITALS: BP 121/67
[2019-06-18 23:15] VITALS: BP 117/66
[2019-06-19] VITALS (8 sets, daily range): BP systolic 93–118; BP diastolic 60–67
[2019-06-19] MEDS: PERCOCET 5MG/325MG TAB PO PRN ×3 (01:26→14:43)
--- NOTE | 2019-06-19 06:16 | HPEPDOC ---
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 History of Present Illness The patient is a 63-year-old female With PMH of PAD, neuropathy, hyper lipidemia, with lifestyle limiting claudication, status post right lower extremity arteriogram 01/20/19 with angioplasty right SFA. Status post left lower extremity arteriogram 01/30/19 with no intervention necessary, all of her blood vessels has been noted to be extremely diminutive in size. Most recent angiogram 04/15/[address] Solano had stents in right common iliac, left common iliac with attempt to cross chronic total occlusion of the right SFA aborted. Recommendation as per Dr. Solano was to proceed with right femoral to above-knee popliteal bypass with in situ vein. Pateint was admitted today after elective right Fem-Pop bypass. The procedure was uneventful. On my intervi ew in PACU patient complained of right groin and leg discomfort. Dull aching in nature about 4/10, no radiation. Denied any nausea or vomiting. She was just coming out of anaesthesia so was a little sleepy Home Medications Scheduled Aspirin (Aspir 81) 81 Mg Tablet.dr, 1 TAB PO DAILY for pain, (Reported) Atorvastatin Calcium (Atorvastatin Calcium) 40 Mg Tablet, 40 MG PO DAILY, (Reported) Clopidogrel Bisulfate (Clopidogrel) 75 Mg Tablet, 75 MG PO DAILY Gabapentin (Gabapentin) 300 Mg Capsule, 300 MG PO TID, (Reported) Multivit-Min/FA/Lycopen/Lutein (Centrum Silver Tablet) 1 Each Tablet, 1 TAB PO DAILY, (Reported) Scheduled PRN Acetaminophen (Acetaminophen) 325 Mg Tablet, 325 MG PO PRN PRN for PAIN, (Reported) Allergies Coded Allergies: No Known Allergies (Unverified , 06/18/19) Past Medical History Medical History PAD, Dyslipidemia , Peripheral neuropathy , Colon polyps THYROID DISEASE FIBROCYSTIC BREAST DISEASE Surgical History , Bilateral Knee arthroscopy with repair of ligaments PARTIAL REMOVAL PARATHYROID: 2/4 GLANDS REMOVED 1993 THYROIDECTOMY PARTIAL (2 LOBES REMOVED) 1993 TONSILLECTOMY EYE SURGERY FOR STRABISMUS AGE 4 Family History Mother: History of cancer lung, pancretic cancer Father: History of hypertension, diabetes, CAD PATERNAL GRAND MOTHER: , HTN, DM YOUNGEST DAUGHTER HAS SPINAL BIFIDA AND MOREIRA\'S SYNDROME. Social History * Smoker: former Smoker, quit less than 1 year Alcohol: Denies Drugs: denies A-FIB/CHADSVASC A-FIB History Current/History of A-Fib/PAF?: No Review of Systems Constitutional: Denies: Chills, Fever, Night Sweats Eyes: Denies: Pain, Vision change ENT: Denies: Head Aches, Ear Pain, Dysphagia Skin: Denies: Rash, Lesions, Breakdown Pulmonary: Denies: Dyspnea, Cough Cardiovascular: Denies: Chest Pain, Palpitations, Orthopnea, Paroxysmal Noc. Dyspnea, Lt Headedness Gastrointestinal: Denies: Nausea, Vomiting, Abdominal Pain, Diarrhea Hematologic: Denies: Bruising, Bleeding Excessively Musculoskeletal: Reports: Leg Pain; Denies: Neck Pain, Back Pain, Joint Pain, Muscle Pain, Spasms Physical Examination General Exam: Positive: Cooperative, No Acute Distress, Other (somnolent) Eye Exam: Positive: PERRLA, Conjunctiva & lids normal, EOMI ENT Exam: Positive: Atraumatic, Mucous membr. moist/pink, Pharynx Normal Neck Exam: Positive: Supple; Negative: JVD, thyromegaly Chest Exam: Positive: Clear to auscultation, Normal air movement Heart Exam: Positive: Rate Normal, Regular Rhythm, Normal S1, Normal S2; Negative: Murmurs, Rubs Telemetry: Positive: No significant arrhythmia Abdomen Exam: Positive: BS Hypoactive, Soft; Negative: Tenderness, Hepatospenomegaly Extremity Exam: Positive: Tenderness (in right groin), Other (warm with good dorsalis pedis pulses.); Negative: Clubbing, Cyanosis, Edema Skin Exam: Positive: Nl turgor and temperature; Negative: Breakdown, Lesion Vital Signs Vital Signs Date Time Temp Pulse Resp B/P (MAP) Pulse Ox O2 Delivery O2 Flow Rate FiO2 06/18/19 11:11 97.9 75 18 115/68 (84) 96 Room Air Laboratory Data Labs 24H Laboratory Tests 2 06/18/19 10:48: Nucleated Red Blood Cells % (auto) 0.0, Prothrombin Time 12.7, Prothromb Time International Ratio 0.98, Activated Partial Thromboplast Time 27.2, Anion Gap 5L, Glomerular Filtration Rate > 60.0, Calcium Level 9.2 CBC/BMP Laboratory Tests 06/18/19 10:48 Assessment/Plan The patient is a 63-year-old female With PMH of PAD, neuropathy, hyperlipidemia, with lifestyle limiting claudication, status post right lower extremity arteriogram 01/20/19 with angioplasty right SFA. Status post left lower extremity arteriogram 01/30/19 with no intervention necessary, all of her blood vessels has been noted to be extremely diminutive in size. Most recent angiogram 04/15/[address] Solano had stents in right common iliac, left common iliac with attempt to cross chronic total occlusion of the right SFA aborted. Recommendation as per Dr. Solano was to proceed with right femoral to above-knee popliteal bypass with in situ vein. Pateint was admitted today after elective right Fem-Pop bypass. 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 Plan / VTE VTE Prophylaxis Ordered?: Yes FREDY WOOD MD June 18, 2019 18:34
[2019-06-19] MEDS: GABAPENTIN 300 MG CAP PO SCH ×3 (08:51→20:38)
--- NOTE | 2019-06-19 10:34 | IPNPDOC ---
Text Note Date of Service The patient was seen on 06/19/19. NOTE Vascular surgery. Dr. Solano The patient is a 63-year-old female with lifestyle limiting claudication, status post right lower extremity arteriogram 01/20/19 with angioplasty right SFA. Status post left lower extremity arteriogram 01/30/19 with no intervention necessary, all of her blood vessels has been noted to be extremely diminutive in size. Most recent angiogram 04/15/[address] Solano status post stent right common iliac, left common iliac with attempt to cause chronic total occlusion of the right SFA aborted. The patient is postop day 1 S/P right femoral to above- knee popliteal bypass with in situ vein as per Dr. Solano 06/18/19. The patient is resting in bed. She is having some breakfast. She states pain is controlled. The patient's wounds are examined. Ramsey are intact. There is no drainage or erythema. Wounds are thoroughly cleaned and dry dressing is replaced. There is strong Doppler signal over the bypass mid right thigh, strong Doppler signals at the DP, slightly less pronounced at the PT. The right foot is warm to touch with brisk capillary refill. As per postoperative note, Okay to continue home medications including aspirin and Plavix. Will reorder this AM. Encouraged high-protein diet to facilitate with healing. Plan to remove Perez catheter at this morning. Patient is okay to get out of bed, ambulation as tolerated. VS,Fishbone, I+O VS, Fishbone, I+O Laboratory Tests 06/18/19 10:48 Vital Signs Date Time Temp Pulse Resp B/P (MAP) Pulse Ox O2 Delivery O2 Flow Rate FiO2 06/19/19 08:51 97.9 79 18 111/62 94 Room Air 06/18/19 19:50 2 I&O- Last 24 Hours up to 6 AM 06/19/19 06:00 Intake Total 2775 ml Output Total 1425 ml Balance 1350 ml Olga Guerra June 19, 2019 10:33
[2019-06-19] MEDS: ASPIRIN 81 MG ENTERIC TAB PO SCH (12:10)
[2019-06-19] MEDS: CLOPIDOGREL 75 MG TAB PO SCH (12:10)
--- NOTE | 2019-06-19 13:41 | IPNPDOC ---
Subjective Date Seen The patient was seen on 06/19/19. Subjective Chief Complaint/HPI Has mild pin at the site of surgery, no other complaints, able to ambulate without much discomfort. No fever or chills, no chest pain or SOB, no abdominal pain , nausea or vomiting. Objective Physical Examination General Exam: Positive: Cooperative, No Acute Distress, Other (somnolent) Eye Exam: Positive: PERRLA, Conjunctiva & lids normal, EOMI ENT Exam: Positive: Atraumatic, Mucous membr. moist/pink, Pharynx Normal Neck Exam: Positive: Supple; Negative: JVD, thyromegaly Chest Exam: Positive: Clear to auscultation, Normal air movement Heart Exam: Positive: Rate Normal, Regular Rhythm, Normal S1, Normal S2; Negative: Murmurs, Rubs Telemetry: Positive: No significant arrhythmia Abdomen Exam: Positive: BS Hypoactive, Soft; Negative: Tenderness, Hepatospenomegaly Extremity Exam: Positive: Tenderness (in right groin), Other (warm with good dorsalis pedis pulses.); Negative: Clubbing, Cyanosis, Edema Skin Exam: Positive: Nl turgor and temperature; Negative: Breakdown, Lesion Assessment /Plan Assessment The patient is a 63-year-old female With PMH of PAD, neuropathy, hyperlipidemia, with lifestyle limiting claudication, status post right lower extremity arteriogram 01/20/19 with angioplasty right SFA. Status post left lower extremity arteriogram 01/30/19 with no intervention necessary, all of her blood vessels has been noted to be extremely diminutive in size. Most recent angiogram 04/15/[address] Solano had stents in right common iliac, left common iliac with attempt to cross chronic total occlusion of the right SFA aborted. Recommendation as per Dr. Solano was to proceed with right femoral to above-knee popliteal bypass with in situ vein. Patent was admitted today after elective right Fem-Pop bypass. 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 Plan/VTE VTE Prophylaxis Ordered?: Yes VS, I&O, 24H, Fishbone Vital Signs/I&O Vital Signs Date Time Temp Pulse Resp B/P (MAP) Pulse Ox O2 Delivery O2 Flow Rate FiO2 06/19/19 10:00 97.6 80 18 110/60 (77) 96 Room Air 06/18/19 19:50 2 I&O- Last 24 Hours up to 6 AM 06/19/19 06:00 Intake Total 2775 ml Output Total 1425 ml Balance 1350 ml FREDY WOOD MD June 19, 2019 13:41
[2019-06-19] MEDS ORDERED: KETOROLAC 30 MG/ML 1ML VIAL As Ordered ONE (14:05)
[2019-06-19] MEDS: ATORVASTATIN 20 MG TAB PO SCH (20:38)
[2019-06-19] MEDS ORDERED: NS 500 ML IV ONE (22:15)
[2019-06-19] MEDS ORDERED: ACETAMINOPHEN TAB 650MG DOSE (2X325MG) PO ONE (23:00)
[2019-06-20 06:00] VITALS: BP 121/64
[2019-06-20] MEDS: CLOPIDOGREL 75 MG TAB PO SCH (08:23)
[2019-06-20] MEDS: ASPIRIN 81 MG ENTERIC TAB PO SCH (08:23)
[2019-06-20] MEDS: GABAPENTIN 300 MG CAP PO SCH ×3 (08:23→20:01)
--- NOTE | 2019-06-20 12:57 | IPNPDOC ---
Date Seen The patient was seen on 06/20/19. Progress Note Patient seen and examined. Doing well this afternoon postoperative day 2 status post right femoral to above-knee popliteal bypass with in situ vein. She is sitting up eating lunch and tolerating her diet without difficulty. She said this morning she had a bit of a rough morning due to pain and generalized discomfort. However, after getting up and walking around, she says her pain was better and she feels good this afternoon. The patient has had knee pain postop, which she says is a little better today. This is likely multifactorial. Partly it may be because of the positioning of the leg during surgery, partially due to the incision itself, and partially due to swelling and edema after vein harvest. Elevation, ambulation, and rest will all plan to helping her knee pain completely resolve. She did have a low-grade temperature overnight, likely due to atelectasis postop, and incentive spirometry was ordered. The patient should do this 10 times per hour while awake. She also had a little bit of hypotension and was given a 500 mL bolus of normal saline, with resolution of the hypotension. She has been normotensive with vital stable today. On exam, her right groin incision is clean dry and intact and was thoroughly cleaned with dry dressings placed. There is a biphasic signal over the bypass. Her upper thigh small incision is clean dry and intact and a dry dressing was placed. Her lower thigh incision above the knee is a little more concerning. There is quite a bit of edema, and a blister is noted on the posterior aspect of the incision in the midportion, and I was able to carefully express fluid from the blister and lay down the skin which hopefully will help with healing. Unfortunately, blistered skin does take a little longer to heal, so we will watch this closely. The incision was thoroughly cleaned and dry dressings were placed. She seems to have easier range of motion in her right knee on exam with less tenderness to palpation today. She has strong Doppler signals at the DP and PT on the right. I put an order for a CBC and Chem-7 just to check her basic labs postop. I don't anticipate a large drop in hemoglobin since intraoperative blood loss was minimal, but I think it would be good to have a postop baseline. I encouraged her to drink plenty of fluids today and she says she is trying to do so. Initially, I thought she might be ready to go home today, but now after talking to her I think one more day would be good to monitor her and make sure her vitals remained stable overnight, and she is getting up and around without difficulty. We appreciate the hospitalist management of this patient. VS, I&O, 24H, Fishbone Vital Signs/I&O Vital Signs Date Time Temp Pulse Resp B/P (MAP) Pulse Ox O2 Delivery O2 Flow Rate FiO2 06/20/19 08:54 98.2 94 18 121/64 99 Room Air 06/20/19 08:24 2.0 I&O- Last 24 Hours up to 6 AM 06/20/19 06:00 Intake Total 3020 ml Output Total 3050 ml Balance -30 ml JOEY JOY MD June 20, 2019 12:57
[2019-06-20 13:22] LABS: HEMATOCRIT 34.4 % (36.0-47.0); HEMOGLOBIN 11.1 g/dl (12.0-15.5); MEAN CORPUSCULAR HEMOGLOBIN 30.6 pg (27.0-33.0); MEAN CORPUSCULAR HGB CONC 32.3 g/dl (32.0-36.5); MEAN CORPUSCULAR VOLUME 94.8 fl (80.0-96.0); PLATELET COUNT, AUTOMATED 323 10^3/uL (150-450); RED BLOOD COUNT 3.63 10^6/uL (4.00-5.40); WHITE BLOOD COUNT 10.1 10^3/uL (4.0-10.0)
[2019-06-20 13:36] LABS: BLOOD UREA NITROGEN 14 MG/DL (7-18); CALCIUM LEVEL 8.4 MG/DL (8.8-10.2); CARBON DIOXIDE LEVEL 30 MEQ/L (21-32); CHLORIDE LEVEL 103 MEQ/L (98-107); CREATININE FOR GFR 0.63 MG/DL (0.55-1.30); GLOMERULAR FILTRATION RATE > 60.0 (>45); GLUCOSE, FASTING 100 MG/DL (70-100); POTASSIUM SERUM 3.8 MEQ/L (3.5-5.1); SODIUM LEVEL 139 MEQ/L (136-145)
[2019-06-20 14:00] VITALS: BP 104/70
[2019-06-20] MEDS: PERCOCET 5MG/325MG TAB PO PRN (14:06)
--- NOTE | 2019-06-20 17:26 | IPNPDOC ---
Subjective Date Seen The patient was seen on 06/20/19. Subjective Chief Complaint/HPI Complains of some pain in the right leg and right knee, continues to have abnormal sensations in both the legs however says they feel warm and it does not feel as numb as before . Says has some sensations now at the bottom of the feet. Objective Physical Examination General Exam: Positive: Cooperative, No Acute Distress, Other (somnolent) Eye Exam: Positive: PERRLA, Conjunctiva & lids normal, EOMI ENT Exam: Positive: Atraumatic, Mucous membr. moist/pink, Pharynx Normal Neck Exam: Positive: Supple; Negative: JVD, thyromegaly Chest Exam: Positive: Clear to auscultation, Normal air movement Heart Exam: Positive: Rate Normal, Regular Rhythm, Normal S1, Normal S2; Negative: Murmurs, Rubs Telemetry: Positive: No significant arrhythmia Abdomen Exam: Positive: BS Hypoactive, Soft; Negative: Tenderness, Hepatospenomegaly Extremity Exam: Positive: Tenderness (in right groin), Swelling (mild swelling int he right thigh and knee), Other (warm with good dorsalis pedis and posterior tibial dopplerable pulses.); Negative: Clubbing, Cyanosis, Edema Skin Exam: Positive: Nl turgor and temperature, Other skin issue (surgical dressing in the right groin and right upper and lower thigh. ); Negative: Breakdown, Lesion Assessment /Plan Assessment The patient is a 63-year-old female With PMH of PAD, neuropathy, hyperlipidemia, with lifestyle limiting claudication, status post right lower extremity arteriogram 01/20/19 with angioplasty right SFA. Status post left lower extremity arteriogram 01/30/19 with no intervention necessary, all of her blood vessels has been noted to be extremely diminutive in size. Most recent angiogram 04/15/[address] Solano had stents in right common iliac, left common iliac with attempt to cross chronic total occlusion of the right SFA aborted. Recommendation as per Dr. Solano was to proceed with right femoral to above-knee popliteal bypass with in situ vein. Patent was admitted today after elective right Fem-Pop bypass. 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 Hyperlipidemia continue statin. Plan/VTE VTE Prophylaxis Ordered?: Yes VS, I&O, 24H, Fishbone Vital Signs/I&O Vital Signs Date Time Temp Pulse Resp B/P (MAP) Pulse Ox O2 Delivery O2 Flow Rate FiO2 06/20/19 14:36 98.2 18 99 Room Air 06/20/19 14:06 94 121/64 2.0 I&O- Last 24 Hours up to 6 AM 06/20/19 06:00 Intake Total 3020 ml Output Total 3050 ml Balance -30 ml Laboratory Data 24H LABS Laboratory Tests 2 06/20/19 13:00: Nucleated Red Blood Cells % (auto) 0.0, Anion Gap 6L, Glomerular Filtration Rate > 60.0, Calcium Level 8.4L CBC/BMP Laboratory Tests 06/20/19 13:00 FREDY WOOD MD June 20, 2019 17:19
[2019-06-20] MEDS: ATORVASTATIN 20 MG TAB PO SCH (20:01)
[2019-06-20 22:00] VITALS: BP 101/68
[2019-06-21] MEDS: PERCOCET 5MG/325MG TAB PO PRN ×3 (03:51→16:01)
[2019-06-21 06:00] VITALS: BP 115/61
[2019-06-21] MEDS: ASPIRIN 81 MG ENTERIC TAB PO SCH (10:36)
[2019-06-21] MEDS: CLOPIDOGREL 75 MG TAB PO SCH (10:37)
[2019-06-21] MEDS: GABAPENTIN 300 MG CAP PO SCH ×2 (10:37→16:00)
--- NOTE | 2019-06-21 13:50 | IPNPDOC ---
Date Seen The patient was seen on 06/21/19. Progress Note Patient seen and examined. Doing well this afternoon postoperative day 3 status post right femoral to above-knee popliteal bypass with in situ vein. She just ate lunch and is is tolerating her diet without difficulty. She said her pain was better today, and she feels good this afternoon. The patient has had knee pain postop, which she says is a also little better today. This is likely multifactorial. Partly it may be because of the positioning of the leg during surgery, partially due to the incision itself, and partially due to swelling and edema after vein harvest. Elevation, ambulation, and rest will all plan to helping her knee pain completely resolve. Physical therapy worked with the patient on ambulation today. She wears her braces on her legs to help with her ambulation. At home, she uses a cane, and not a walker. Physical therapy observed her with a cane and said she was safe from their standpoint to go home and use her cane. On exam, her right groin incision is clean dry and intact and was thoroughly cleaned with dry dressings placed. There is a strong biphasic signal over the bypass. Her upper thigh small incision is clean dry and intact and a dry dressing was placed. Her lower thigh incision above the knee is stable. There is still quite a bit of edema, and a blister is again noted on the posterior aspect of the incision in the midportion, and I was able to carefully express fluid from the blister and lay down the skin which hopefully will help with healing. Unfortunately, blistered skin does take a little longer to heal, so we will at Hydrofera Blue to cover this portion of the incision and then cover with a dry gauze. The incision was thoroughly cleaned and dry dressings were placed. She seems to have easier range of motion in her right knee on exam with less tenderness to palpation today. She has strong Doppler signals at the DP and PT on the right. Her foot is warm and hyperemic and her sensation is markedly improved. Patient is ready for discharge from a vascular standpoint. She should return to clinic in 1 week to check her incisions in 2-3 weeks for staple removal. She should shower daily with her dressings off. Warm soapy water over the incisions and then pat dry with clean towel. The groin and upper thigh incision should be covered with a dry gauze and paper tape. The lower thigh incision should have Hydrofera Blue over the blister in the inferior part of the incision, and then dry gauze and paper tape. She should elevate her right lower extremity above the level of the heart at least 30 minutes 3 times a day to help with resolution of the edema. She should wear her braces and ambulate with a cane went home. It is okay to ambulate. It is okay to go up and down stairs. However, no lifting greater than 5 pounds and no strenuous exercise for 2 weeks or until incisions are completely healed. She will need a prescription for Percocet at discharge. She should continue her home medications. We encourage high-protein diet. We appreciate the hospitalist assistance with the management of this patient and we look forward to seeing the patient back in clinic in a week. VS, I&O, 24H, Fishbone Vital Signs/I&O Vital Signs Date Time Temp Pulse Resp B/P (MAP) Pulse Ox O2 Delivery O2 Flow Rate FiO2 06/21/19 11:08 16 Room Air 06/21/19 10:38 97.6 91 115/61 94 06/20/19 14:06 2.0 I&O- Last 24 Hours up to 6 AM 06/21/19 06:00 Intake Total 2750 ml Output Total 4850 ml Balance -2100 ml JOEY JOY MD June 21, 2019 13:50
[2019-06-21 14:00] VITALS: BP 100/68
[2019-06-21] MEDS ORDERED: PERCOCET PO (14:28)
[2019-06-21] MEDS ORDERED: CLOP75TA2 PO (15:57)
--- NOTE | 2019-06-21 17:40 | DS.PDOC ---
Discharge Summary General Date of Admission June 18, 2019 at 10:31 Date of Discharge 06/21/19 Discharge Summary PROCEDURES PERFORMED DURING STAY: 1. Right femoral to above-knee popliteal bypass with in situ greater saphenous vein 2. Right lower extremity arteriogram DISCHARGE DIAGNOSES: S/p right femoro-popliteal bypass for chronic SFA occlusion. SECONDARY DIAGNOSIS: PAD, neuropathy, hyperlipidemia, bilateral foot drop, bilateral illiac stents, Colonic polyps planned for colon surgery in July 2019, herniated lumber disc, cervical and lumber disc disease, carpal tunnel, cervical pinched nerves. 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 HISTORY OF PRESENT ILLNESS: See history and physical HOSPITAL COURSE: The patient is a 63-year-old female With PMH of PAD, neuropa thy, hyperlipidemia, with lifestyle limiting claudication, status post right lower extremity arteriogram 01/20/19 with angioplasty right SFA. Status post left lower extremity arteriogram 01/30/19 with no intervention necessary, all of her blood vessels has been noted to be extremely diminutive in size. Most recent angiogram 04/15/[address] Solano had stents in right common iliac, left common iliac with attempt to cross chronic total occlusion of the right SFA aborted. Recommendation as per Dr. Solano was to proceed with right femoral to above-knee popliteal bypass with in situ vein. Patent was admitted today after elective right Fem-Pop bypass. 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 activity as per surgery Neuropathy with bilateral foot drop continue gabapentin uses bilateral braces. Hyperlipidemia continue statin. DISCHARGE MEDICATIONS: Please see below. ALLERGIES: Please see below. PHYSICAL EXAMINATION ON DISCHARGE: VITAL SIGNS: Please see below. General Exam: Positive: Cooperative, No Acute Distress, Other (somnolent) Eye Exam: Positive: PERRLA, Conjunctiva & lids normal, EOMI ENT Exam: Positive: Atraumatic, Mucous membr. moist/pink, Pharynx Normal Neck Exam: Positive: Supple; Negative: JVD, thyromegaly Chest Exam: Positive: Clear to auscultation, Normal air movement Heart Exam: Positive: Rate Normal, Regular Rhythm, Normal S1, Normal S2; Negative: Murmurs, Rubs Telemetry: Positive: No significant arrhythmia Abdomen Exam: Positive: BS Hypoactive, Soft; Negative: Tenderness, Hepatospenomegaly Extremity Exam: Positive: Tenderness (in right groin), Swelling (mild swelling int he right thigh and knee), Other (warm with good dorsalis pedis and posterior tibial dopplerable pulses.); Negative: Clubbing, Cyanosis, Edema Skin Exam: Positive: Nl turgor and temperature, Other skin issue (surgical dressing in the right groin and right upper and lower thigh. ); Negative: Breakdown, Lesion LABORATORY DATA: Please see below. ACTIVITY: As instructed by vascular surgery. DIET: High protein DISPOSITION: 01 Home, Self-Care. DISCHARGE INSTRUCTIONS: Follow up in Vascular clinic in 1 week dressing changes as per Dr Mcintosh's instruction DISCHARGE CONDITION: [Stable]. TIME SPENT ON DISCHARGE: 35 minutes. Vital Signs/I&Os Vital Signs Date Time Temp Pulse Resp B/P (MAP) Pulse Ox O2 Delivery O2 Flow Rate FiO2 06/21/19 16:01 18 Room Air 06/21/19 14:00 97.7 91 100/68 (79) 97 06/20/19 14:06 2.0 I&O- Last 24 Hours up to 6 AM 06/21/19 07:00 Intake Total 2750 ml Output Total 4850 ml Balance -2100 ml Discharge Medications Scheduled Aspirin (Aspir 81) 81 Mg Tablet., 1 TAB PO DAILY for pain, (Reported) Atorvastatin Calcium (Atorvastatin Calcium) 40 Mg Tablet, 40 MG PO DAILY, (Reported) Clopidogrel Bisulfate (Clopidogrel) 75 Mg Tablet, 75 MG PO DAILY Gabapentin (Gabapentin) 300 Mg Capsule, 300 MG PO TID, (Reported) Multivit-Min/FA/Lycopen/Lutein (Centrum Silver Tablet) 1 Each Tablet, 1 TAB PO DAILY, (Reported) Scheduled PRN Acetaminophen (Acetaminophen) 325 Mg Tablet, 325 MG PO PRN PRN for PAIN, (Reported) Oxycodone/Acetaminophen (Oxycodone-Acetaminophen 5-325) 1 Each Tablet, 1 TAB PO Q6HP PRN for MILD/MODERATE PAIN (PS 1-7) Allergies Coded Allergies: No Known Allergies (Unverified , 06/18/19) FREDY WOOD MD June 21, 2019 17:40
== END 2019-06-21 16:10 | disposition home or self-care (01) | DRG 181 ==
LOC: M OR 10:31 → M MSPAV 20:13
PROVIDERS: ADMIT Surgery Vascular Surgery; ATTEND Internal Medicine Nephrology
PROC: 041K09L Bypass Right Femoral Artery to Popliteal Artery with Autologous Venous Tissue, Open Approach (ICD-10-PCS; principal; 2019-06-18 12:00)
DX: I70.211 Atherosclerosis of native arteries of extremities with intermittent claudication, right leg (principal); G62.9 Polyneuropathy, unspecified; E78.5 Hyperlipidemia, unspecified; Z79.82 Long term (current) use of aspirin; Z79.899 Other long term (current) drug therapy; Z87.891 Personal history of nicotine dependence

== ENCOUNTER → 2019-07-13 | Outpatient (REF) | payer OTHER ==
[~2019-07-13] MED LIST changes: +ATOR40TA75 PO; +CENT1TAB PO; -LR 1,000 ML IV ONE; +PERCOCET PO; -ceFAZolin SOD 2 GM in IV 1 EA IV ONE
== END ==
LOC: M LAB REF 11:59
PROVIDERS: ATTEND Physician Assistant
DX: I70.211 Atherosclerosis of native arteries of extremities with intermittent claudication, right leg (principal); Z48.812 Encounter for surgical aftercare following surgery on the circulatory system

== ENCOUNTER → 2019-08-12 | Outpatient (CLI) | payer OTHER ==
--- NOTE | 2019-08-12 11:39 | REP ---
Bilateral lower extremity arterial ultrasound with Doppler: History: Atherosclerosis. Intermittent claudication right leg. History of iliac stents status post right greater saphenous vein insight to bypass graft. Comparison study March 06, 2019. Findings: A bypass graft is seen from the common femoral artery on the right to the popliteal artery just above the knee. The graft is seen to be occluded. The superficial femoral artery is occluded at proximal and mid thigh level. Revascularized flow is seen in the distal SFA on the right. Monophasic waveforms are noted throughout the right lower extremity. On the left monophasic waveforms are noted throughout as well. Decreased flow velocities are seen on the left diffusely compared to prior study. The stent is visible in the right external iliac artery but we were not able to document flow and the stent possibly for technical reasons. Flow is seen just distal to the stent. We were not able to document flow in the common iliac artery stents. Ankle brachial indices are abnormal bilaterally and decreased from the prior study measured at 0.47 on the right and 0.47 on the left. Right lower extremity arterial Doppler velocity chart: Right CF A PSV 174 cm/S Profunda 100 Proximal SFA occluded Mid SFA occluded Distal SFA revascularized 32 Popliteal 57 Proximal AT A 83 Tibioperoneal trunk 48 Proximal FRUIT PRESS OPERATOR 25 Distal FRUIT PRESS OPERATOR 23 Distal AT A 45 Left lower extremity arterial Doppler velocity chart: Left CF A PSV 105 cm/S Profunda 43 Proximal SFA 79 Mid SFA 68 Distal SFA 67 Popliteal 37 Proximal AT A 38 Tibioperoneal trunk 18 Proximal FRUIT PRESS OPERATOR 14 Distal FRUIT PRESS OPERATOR nine Distal AT 08:20 to Electronically Signed by Edwar Duque MD 08/12/2019 11:31 A
== END ==
LOC: M RAD 09:23
PROVIDERS: ATTEND Surgery Vascular Surgery
DX: I70.211 Atherosclerosis of native arteries of extremities with intermittent claudication, right leg (principal); Z95.820 Peripheral vascular angioplasty status with implants and grafts

== ENCOUNTER → 2020-01-28 | Outpatient (CLI) | payer MEDICARE ==
[~2020-01-28] MED LIST changes: +ACET-838 PO; -ASPI81TA85 PO; +ASPI81TA86 PO; -NON-325T5 PO
--- NOTE | 2020-01-28 16:45 | REP ---
INDICATION: ATHSCL SEEMA ART OF EXT WITH INT WALLY, PAKO LEGS. COMPARISON: None. TECHNIQUE: Duplex vascular ultrasound of the distal aorta, iliac femoral and lower leg arteries. FINDINGS: Distal aorta, iliac and common femoral arteries: There are bilateral iliac intravascular stents. The distal aortic flow velocity is 34 centimeters/seconds. The right Ca flow velocity is 151 centimeters/second with triphasic flow. The left CCA flow velocity is 24 centimeters/second with monophasic flow. The right EIA flow velocity is 204 centimeters/second with triphasic flow. There are decreased flow velocities in the distal aorta and in the left MEGAN/EIA. The left EIA flow velocity is 23 centimeters/second/occluded with monophasic flow. The left EIA is occluded just distal to the stents and there is collateral flow to the left proximal ANIMATOR. The flow velocity in the left ANIMATOR is 69 centimeters/second. Right lower extremity: Brachial peak systole: 140 mmHg Dorsalis pedis peak systole: 80 mmHg VP LAB peak systole: 80 mmHg MIGUEL: 0.57 ANIMATOR: 138 velocity, 8 triphasic phasicity Profunda: 178 velocity, biphasic phasicity SFA prox: 48/occluded velocity, monophasic phasicity SFA mid: Occluded velocity, -- phasicity SFA dist: 38 velocity, monophasic phasicity Pop: 42 velocity, monophasic phasicity JORDAN prox: 28 velocity, monophasic phasicity Tib/P tr: 22 velocity, monophasic phasicity VP LAB pr: 11 velocity, monophasic phasicity VP LAB dst: 9 velocity, monophasic phasicity JORDAN dst: 30 velocity, monophasic phasicity Left lower extremity: Brachial peak systole: 110 mmHg Dorsalis pedis peak systole: 60 mmHg VP LAB peak systole: Inaudible mmHg MIGUEL: 0.42 ANIMATOR: 57 velocity, but monophasic phasicity Profunda: 41 velocity, monophasic phasicity SFA prox: 54 velocity, monophasic phasicity SFA mid: 48 velocity, monophasic phasicity SFA dist: 52 velocity, monophasic phasicity Pop: 33 velocity, monophasic phasicity JORDAN prox: The 19 velocity, monophasic phasicity Tib/P tr: 21 velocity, monophasic phasicity VP LAB pr: 8 velocity, monophasic phasicity VP LAB dst: 5 velocity, on face phasicity JORDAN dst: 7 velocity, monophasic phasicity IMPRESSION: The right ANIMATOR-popliteal artery bypass graft is occluded. There are monophasic waveforms distal to the right ANIMATOR bifurcation. There are multiple occlusions with collateral flow in the right SFA. There is trickle flow and decreased flow velocities at the calf and ankle. The left EIA is occluded just distal to the stent with collateral flow through a vessel lateral to the EIA. In the left lower extremity there are monophasic waveforms throughout. There is trickle flow and decreased waveforms at the left calf and ankle. <Electronically signed by Troy Boothe > 01/28/20 [id number]
== END ==
LOC: M RAD 13:51
PROVIDERS: ATTEND Surgery Vascular Surgery
DX: I70.213 Atherosclerosis of native arteries of extremities with intermittent claudication, bilateral legs (principal); R09.89 Other specified symptoms and signs involving the circulatory and respiratory systems

== ENCOUNTER → 2020-02-29 | Outpatient (REF) | payer MEDICARE, OTHER ==
[~2020-02-29] MED LIST changes: +GABA-282 PO; -GABA-843 PO
[2020-02-29 12:17] LABS: HEMATOCRIT 43.6 % (36.0-47.0); HEMOGLOBIN 13.6 g/dl (12.0-15.5); MEAN CORPUSCULAR HEMOGLOBIN 29.4 pg (27.0-33.0); MEAN CORPUSCULAR HGB CONC 31.2 g/dl (32.0-36.5); MEAN CORPUSCULAR VOLUME 94.4 fl (80.0-96.0); PLATELET COUNT, AUTOMATED 353 10^3/uL (150-450); RED BLOOD COUNT 4.62 10^6/uL (4.00-5.40); WHITE BLOOD COUNT 6.5 10^3/uL (4.0-10.0)
[2020-02-29 13:12] LABS: BLOOD UREA NITROGEN 19 MG/DL (7-18); CALCIUM LEVEL 9.1 MG/DL (8.8-10.2); CARBON DIOXIDE LEVEL 31 MEQ/L (21-32); CHLORIDE LEVEL 104 MEQ/L (98-107); CREATININE FOR GFR 0.78 MG/DL (0.55-1.30); GLOMERULAR FILTRATION RATE > 60.0 (>45); GLUCOSE, FASTING 106 MG/DL (70-100); POTASSIUM SERUM 4.6 MEQ/L (3.5-5.1); SODIUM LEVEL 141 MEQ/L (136-145)
== END ==
LOC: M SFHCCLAY 09:05
PROVIDERS: ATTEND Family Medicine
DX: Z01.818 Encounter for other preprocedural examination (principal); I73.9 Peripheral vascular disease, unspecified; K63.5 Polyp of colon
CPT/HCPCS: 80048; 85027; 86850; 86900; 86901; 93005; G0463

== ENCOUNTER → 2020-06-14 | Outpatient (CLI) | payer MEDICARE ==
[~2020-06-14] MED LIST changes: -ACET-838 PO; +ACET32TAB PO; +DULO1CAP5 PO; +ISOVUE-300 61% 50ML VIAL As Ordered ONE; +LIDOCAINE 1% MDV 20ML VIAL As Ordered ONE; +MIDAZOLAM INJ 2MG/2ML VIAL (J2250 PER 1MG) As Ordered ONE; +fentaNYL 100 MCG/2 ML INJECTION (J3010) As Ordered ONE
[2020-06-14 07:18] LABS: MEAN CORPUSCULAR HEMOGLOBIN 29.1 pg (27.0-33.0); MEAN CORPUSCULAR HGB CONC 32.5 g/dl (32.0-36.5); MEAN CORPUSCULAR VOLUME 89.5 fl (80.0-96.0); PLATELET COUNT, AUTOMATED 309 10^3/uL (150-450); RED BLOOD COUNT 4.47 10^6/uL (4.00-5.40); WHITE BLOOD COUNT 7.7 10^3/uL (4.0-10.0)
[2020-06-14 07:41] LABS: BLOOD UREA NITROGEN 18 MG/DL (7-18); CALCIUM LEVEL 8.9 MG/DL (8.8-10.2); CARBON DIOXIDE LEVEL 24 MEQ/L (21-32); CHLORIDE LEVEL 105 MEQ/L (98-107); CREATININE FOR GFR 0.81 MG/DL (0.55-1.30); GLOMERULAR FILTRATION RATE > 60.0 (>45); GLUCOSE, FASTING 170 MG/DL (70-100); POTASSIUM SERUM 4.3 MEQ/L (3.5-5.1); SODIUM LEVEL 139 MEQ/L (136-145)
--- NOTE | 2020-06-14 08:45 | ROOPDOC ---
[facility] Report Of Operation Report of Operation DATE OF PROCEDURE: 06/14/20 PREPROCEDURE DIAGNOSES: Atherosclerosis in the [place] arteries with worsening claudication left lower extremity POSTPROCEDURE DIAGNOSES: Same PROCEDURE: 1. Ultrasound-guided access right common femoral artery 2. Aortoiliofemoral arteriogram with bilateral lower extremity runoff 3. Attempts to cross left iliac artery occlusion, aborted. 4. Mynx closure right common femoral artery SURGEON: Joey Solano MD ANESTHESIA: Local anesthesia 8 mL lidocaine. Moderate intravenous conscious sedation was supervised by Dr. Solano. The patient was independently monitored by registered nurse assigned to the Department of radiology using automated blood pressure, EKG, and pulse oximetry. The details sedation record is permanently stored in the hospital information system. The following is a brief sedation record: Start time 08:03, stop time 08:18, Versed 1 mg IV, fentanyl 25 g IV. INDICATION FOR PROCEDURE: This is a very pleasant 64-year-old patient with a complicated history of severe peripheral vascular disease resistant to en dovascular and open procedures. She has a tendency to build up intimal hyperplasia quickly following both endovascular and open procedures, with rapid failure of angioplasty stenting and bypasses. She also has very diminutive vessels. We have worked her up extensively for vasculitis, and have not identified vasculitis. Today we bring the patient in for left lower extremity arteriogram and potential intervention. Arterial duplex suggested a short occlusion in the distal external iliac artery on the left, just distal to our existing stents. The stents more proximally are patent with sluggish flow on arterial duplex. Risks benefits and alternatives were explained and the patient was agreeable to proceed. Informed consent was obtained. INTERPRETATION: 1. The distal aorta is diminutive but patent with good runoff through the right iliac system. The existing right common and external iliac artery stents are patent. There is flow into the hypogastric. The right common femoral artery is patent with flow into the profunda but the proximal superficial femoral artery is occluded, and there is no flow noted in the right femoropopliteal bypass, w hich is known to be occluded. On the left, there is no flow through the common iliac or external iliac artery in the stents are occluded along their length, and the occlusion extends 2 cm distal to the stents. I suspect the occlusion in the external iliac artery distal to the stents resulted in occlusion of the stents more proximally due to lack of outflow. Distal to this, the common femoral artery is patent with good runoff through the SFA and profunda. Flow to the left common femoral artery is from collaterals from the right iliac and femoral system, as well as from more proximal lumbar collaterals on the left. 2. Runoff through the bilateral superficial femoral arteries was obtained, we do note patency in the left superficial femoral artery, but the right superficial femoral artery is occluded and reconstitutes through collaterals from the right profunda at the above-knee popliteal artery. There is runoff through the popliteal artery into the tibial vessels. On the left, the popliteal artery is patent but it is difficult to say the tibial vessels due to lack of opacification with contrast due to washout from proximal occlusion. 3. After extensive attempts to cross the left iliac system, there is no extravasation noted. REPORT OF OPERATION: The patient was brought to the angiographic suite in stable condition. Her bilateral groins were prepped and draped in a sterile fashion. A timeout was performed. Sedation was administered without complication. Local anesthesia was administered to the skin and subcutaneous tissue over the right common femoral artery. A microneedle was used to access the right common femoral artery under ultrasound guidance. A wire was passed through this access and the needle was removed. A 4 Mexican sheath was placed and flushed with saline. A Glidewire and flushing catheter were advanced into the distal aorta. Aortoiliofemoral arteriograms were performed, please see interpretation above. Attempts were made to cross the iliac occlusion. I did not feel we would be able to do a retrograde cross due to the distance between the patent common femoral artery and the external iliac artery occlusion. I did not think we'll be able to get a sheath in safely on the left. We tried multiple wire catheter combinations to try and go antegrade from our right-sided access. This was not fresh clot as I was hoping, and we could not cross into the iliac system. After extensive attempts, we noted there was no extravasation. Runoff through the bilateral lower extremities was performed, please see interpretation above. We did exchanged sheath over wire for 5 Mexican sheath and plan Mynx closure device with good hemostasis. Pressure was held and sterile dressings were applied. The patient was taken to recovery in stable condition. She tolerated the procedure and the sedation well. ESTIMATED BLOOD LOSS: Approximately 5 mL. COMPLICATIONS: None. PLAN: Okay to resume home diet and medications. Okay to resume Plavix. No lifting greater than 5 pounds or strenuous exercise for 3 days. We will see the patient back in clinic to check her groin access site and discuss options for open surgery. The patient will need bilateral common femoral artery end arterectomy with patch angioplasty. She will need a right to left femoral- femoral bypass. Since we will already be open in the right femoral system, I think it is worthwhile to also do a redo right [id number] popliteal bypass, this time with PTFE. I discussed this with the patient and she is agreeable. However she has had sedation, so we will do her consent and clinic. This is a very challenging patient, and I have discussed with her that all revascularizations are high risk to fail due to her propensity for rapidly building intimal hyperplasia postintervention, and the very diminutive size of herniated vessels. However, I definitely think it is worthwhile to try again. This is a very motivated, compliant patient and we want to try to provide every option to improve her arterial flow to the lower extremities. We appreciate the opportunity to participate in the care of this patient. JOEY SOLANO MD June 14, 2020 08:45
[2020-06-14 12:45] VITALS: BP 138/81
== END ==
LOC: M IRPRO 06:34
PROVIDERS: ATTEND Surgery Vascular Surgery
DX: I70.212 Atherosclerosis of native arteries of extremities with intermittent claudication, left leg (principal); I70.92 Chronic total occlusion of artery of the extremities; Z95.828 Presence of other vascular implants and grafts

== ENCOUNTER → 2020-08-23 | Outpatient (REF) | payer MEDICARE, OTHER ==
[~2020-08-23] MED LIST changes: -ISOVUE-300 61% 50ML VIAL As Ordered ONE; -LIDOCAINE 1% MDV 20ML VIAL As Ordered ONE; -MIDAZOLAM INJ 2MG/2ML VIAL (J2250 PER 1MG) As Ordered ONE; -fentaNYL 100 MCG/2 ML INJECTION (J3010) As Ordered ONE
[2020-08-23 12:38] LABS: CHOLESTEROL LEVEL 108 MG/DL (<200); CHOLESTEROL RISK RATIO 4.153 (<5); HDL CHOLESTEROL 26 MG/DL (>40); HEMOGLOBIN A1c 6.2 %; NON-HDL-C 82 MG/DL; TRIGLYCERIDES LEVEL 438 MG/DL (<150)
== END ==
LOC: M SFHCCLAY 09:23
PROVIDERS: ATTEND Family Medicine
DX: R73.03 Prediabetes (principal); I73.9 Peripheral vascular disease, unspecified; E78.00 Pure hypercholesterolemia, unspecified

== ENCOUNTER → 2020-10-19 | Outpatient (CLI) | payer MEDICARE ==
--- NOTE | 2020-10-19 11:19 | REP ---
INDICATION: Z01.818 PRE OPERATIVE CLEARANCE. COMPARISON: Comparison chest x-ray May 13, 2019. TECHNIQUE: Two views.. FINDINGS: The lungs are well inflated and free of infiltrate. The pleural angles are sharp. The heart size is normal. Pulmonary vasculature is not increased. No significant bony abnormality is seen. IMPRESSION: Negative chest x-ray. <Electronically signed by Rosalio Duque > 10/19/20 1116
== END ==
LOC: M CLY 09:33
PROVIDERS: ATTEND Family Medicine
DX: Z01.818 Encounter for other preprocedural examination (principal)

== ENCOUNTER → 2020-10-19 | Outpatient (REF) | payer MEDICARE ==
[2020-10-19 16:08] LABS: BASO # 0.1 10^3/uL (0.0-0.2); BASO % 0.7 % (0.0-1.0); EOS # 0.2 10^3/uL (0.0-0.5); HEMATOCRIT 43.2 % (36.0-47.0); LYMPH # 1.9 10^3/uL (1.5-5.0); LYMPH % 21.5 % (24.0-44.0); MEAN CORPUSCULAR HGB CONC 32.4 g/dl (32.0-36.5); MEAN CORPUSCULAR VOLUME 92.7 fl (80.0-96.0); MONO # 0.6 10^3/uL (0.0-0.8); MONO % 6.4 % (2.0-8.0); NEUTROPHILS % 68.8 % (36.0-66.0); PLATELET COUNT, AUTOMATED 362 10^3/uL (150-450); RED BLOOD COUNT 4.66 10^6/uL (4.00-5.40); WHITE BLOOD COUNT 8.7 10^3/uL (4.0-10.0)
[2020-10-19 16:29] LABS: BLOOD UREA NITROGEN 15 MG/DL (7-18); CALCIUM LEVEL 9.3 MG/DL (8.8-10.2); CARBON DIOXIDE LEVEL 29 MEQ/L (21-32); CHLORIDE LEVEL 105 MEQ/L (98-107); GLOMERULAR FILTRATION RATE > 60.0 (>45); GLUCOSE, FASTING 151 MG/DL (70-100); SODIUM LEVEL 137 MEQ/L (136-145)
== END ==
LOC: M SFHCCLAY 09:27
PROVIDERS: ATTEND Family Medicine
DX: Z01.818 Encounter for other preprocedural examination (principal)

== ENCOUNTER → 2020-12-22 | Outpatient (REF) | payer MEDICARE ==
[2020-12-23 11:29] LABS: APPEARANCE, URINE TURBID (CLEAR); BACTERIA, URINE AUTO NEGATIVE (NEGATIVE); BILIRUBIN, URINE AUTO NEGATIVE (NEGATIVE); BLOOD, URINE BLOOD NEGATIVE (NEGATIVE); CALCIUM OXALATE CRYSTALS SMALL; COLOR, URINE AMBER (YELLOW); GLUCOSE, URINE (UA) AUTO NEGATIVE (NEGATIVE); KETONE, URINE AUTO NEGATIVE (NEGATIVE); LEUKOCYTE ESTERASE, URINE AUTO NEGATIVE (NEGATIVE); NITRITE, URINE AUTO NEGATIVE (NEGATIVE); PROTEIN, URINE AUTO NEGATIVE (NEGATIVE); RBC, URINE AUTO 1 /HPF (0-3); SPECIFIC GRAVITY URINE AUTO 1.016 (1.002-1.035); SQUAMOUS EPITHELIAL CELL UR AU 15 /HPF (0-6); UROBILINOGEN, URINE AUTO 0.2 mg/dL (0.0-2.0); WBC, URINE AUTO 2 /HPF (0-3)
[2020-12-23 12:00] LABS: HEMOGLOBIN A1c 5.8 %
[2020-12-23 12:17] LABS: BLOOD UREA NITROGEN 17 MG/DL (7-18); CARBON DIOXIDE LEVEL 28 MEQ/L (21-32); CHLORIDE LEVEL 105 MEQ/L (98-107); CREATININE FOR GFR 0.92 MG/DL (0.55-1.30); GLOMERULAR FILTRATION RATE > 60.0 (>45); GLUCOSE, FASTING 115 MG/DL (70-100); POTASSIUM SERUM 4.9 MEQ/L (3.5-5.1); SODIUM LEVEL 140 MEQ/L (136-145)
== END ==
LOC: M SFHCCLAY 14:05
PROVIDERS: ATTEND Family Medicine
DX: R30.0 Dysuria (principal); R73.03 Prediabetes
CPT/HCPCS: 80048; 81001; 81002; 83036; 87086; G0463

== ENCOUNTER → 2021-09-06 | Outpatient (REF) | payer MEDICARE ==
[2021-09-06 16:31] LABS: BLOOD UREA NITROGEN 13 MG/DL (7-18); CALCIUM LEVEL 8.8 MG/DL (8.8-10.2); CARBON DIOXIDE LEVEL 30 MEQ/L (21-32); CHLORIDE LEVEL 106 MEQ/L (98-107); CREATININE FOR GFR 0.71 MG/DL (0.55-1.30); GLOMERULAR FILTRATION RATE > 60.0 (>45); GLUCOSE, FASTING 111 MG/DL (70-100); POTASSIUM SERUM 4.5 MEQ/L (3.5-5.1); SODIUM LEVEL 139 MEQ/L (136-145)
== END ==
LOC: M LABDRAWC 15:48
PROVIDERS: ATTEND Ophthalmology Retina Specialist
DX: H47.10 Unspecified papilledema (principal)

== ENCOUNTER → 2021-09-13 | Outpatient (CLI) | payer MEDICARE ==
[~2021-09-13] MED LIST changes: +PROHANCE 279.3MG/ML 15ML VIAL As Ordered ONE
== END ==
LOC: M RAD 09:14
PROVIDERS: ATTEND Ophthalmology Retina Specialist
DX: H47.10 Unspecified papilledema (principal)
CPT/HCPCS: 70543; 70553; A9576

== ENCOUNTER → 2021-09-19 | Outpatient (REF) | payer MEDICARE ==
[~2021-09-19] MED LIST changes: -PROHANCE 279.3MG/ML 15ML VIAL As Ordered ONE
== END ==
LOC: M LABDRAWC 10:54
PROVIDERS: ATTEND Ophthalmology Retina Specialist
DX: H47.10 Unspecified papilledema (principal)

== ENCOUNTER → 2021-09-20 | Outpatient (REF) | payer MEDICARE | LOC: M LABDRAWC 16:46 | PROVIDERS: ATTEND Ophthalmology Retina Specialist | DX: H47.10 Unspecified papilledema (principal) ==

== ENCOUNTER → 2021-09-27 | Outpatient (REF) | payer MEDICARE | LOC: M LABDRAWC 11:19 | PROVIDERS: ATTEND Ophthalmology Retina Specialist | DX: H47.10 Unspecified papilledema (principal) ==

== ENCOUNTER → 2022-02-28 | Outpatient (REF) | payer MEDICARE ==
[2022-02-28 18:22] LABS: HEMOGLOBIN A1c 5.4 % (4.0-6.0)
[2022-02-28 18:25] LABS: ALBUMIN 3.8 G/DL (3.2-5.2); ALKALINE PHOSPHATASE 101 U/L (46-116); ALT/SGPT 13 U/L (7.0-40); AST/SGOT 11 U/L (<34); BILIRUBIN,TOTAL 0.6 MG/DL (0.3-1.2); BLOOD UREA NITROGEN 16 MG/DL (9-23); CALCIUM LEVEL 8.7 MG/DL (8.3-10.6); CARBON DIOXIDE LEVEL 27 MMOL/L (20-31); CHLORIDE LEVEL 103 MMOL/L (98-107); CHOLESTEROL LEVEL 87 MG/DL (<200); CHOLESTEROL RISK RATIO 3.67 (<5); CREATININE FOR GFR 0.78 MG/DL (0.55-1.30); GLOMERULAR FILTRATION RATE > 60.0 (>45); GLUCOSE, FASTING 198 MG/DL (74-106); HDL CHOLESTEROL 23.7 MG/DL (>40); LDL CHOLESTEROL 0.3 MG/DL (<100); NON-HDL-C 63 MG/DL; POTASSIUM SERUM 4.4 MMOL/L (3.5-5.1); SODIUM LEVEL 139 MMOL/L (136-145); TOTAL PROTEIN 6.8 G/DL (5.7-8.2); TRIGLYCERIDES LEVEL 315 MG/DL (<150)
== END ==
LOC: M SFHCCLAY 11:00
PROVIDERS: ATTEND Nurse Practitioner Family
DX: F17.211 Nicotine dependence, cigarettes, in remission (principal); I73.9 Peripheral vascular disease, unspecified; R73.03 Prediabetes; E78.00 Pure hypercholesterolemia, unspecified

== ENCOUNTER → 2022-07-31 | Outpatient (REF) | payer MEDICARE | LOC: M SFHCCLAY 08:45 | PROVIDERS: ATTEND Physician Assistant | DX: N39.46 Mixed incontinence (principal) ==

== ENCOUNTER → 2022-10-30 | Outpatient (REF) | payer MEDICARE ==
[2022-10-30 12:29] LABS: HEMOGLOBIN A1c 4.5 % (4.0-6.0)
[2022-10-30 12:41] LABS: ALBUMIN 3.4 G/DL (3.2-5.2); ALKALINE PHOSPHATASE 126 U/L (46-116); ALT/SGPT 15 U/L (7.0-40); AST/SGOT 8 U/L (<34); BILIRUBIN,TOTAL 0.5 MG/DL (0.3-1.2); BLOOD UREA NITROGEN 15 MG/DL (9-23); CALCIUM LEVEL 8.5 MG/DL (8.3-10.6); CARBON DIOXIDE LEVEL 26 MMOL/L (20-31); CHLORIDE LEVEL 107 MMOL/L (98-107); CHOLESTEROL LEVEL 73 MG/DL (<200); CREATININE FOR GFR 0.83 MG/DL (0.55-1.30); GLOMERULAR FILTRATION RATE > 60.0 (>45); GLUCOSE, FASTING 160 MG/DL (74-106); HDL CHOLESTEROL 19.2 MG/DL (>40); LDL CHOLESTEROL 4.6 MG/DL (<100); NON-HDL-C 53.8 MG/DL; POTASSIUM SERUM 4.4 MMOL/L (3.5-5.1); SODIUM LEVEL 141 MMOL/L (136-145); TOTAL PROTEIN 6.6 G/DL (5.7-8.2); TRIGLYCERIDES LEVEL 246 MG/DL (<150)
== END ==
LOC: M SFHCCLAY 08:43
PROVIDERS: ATTEND Nurse Practitioner Family
DX: Z00.00 Encounter for general adult medical examination without abnormal findings (principal); R73.03 Prediabetes; I73.9 Peripheral vascular disease, unspecified; R91.8 Other nonspecific abnormal finding of lung field; Z79.899 Other long term (current) drug therapy

== ENCOUNTER → 2023-05-07 | Outpatient (REF) | payer MEDICARE ==
[2023-05-07 18:48] LABS: BASO % 0.4 % (0.0-1.0); EOS # 0.1 10^3/uL (0.0-0.5); EOS % 0.7 % (0.0-3.0); HEMATOCRIT 30.8 % (36.0-47.0); HEMOGLOBIN 9.8 g/dl (12.0-15.5); LYMPH # 1.3 10^3/uL (1.5-5.0); LYMPH % 18.3 % (24.0-44.0); MEAN CORPUSCULAR HEMOGLOBIN 28.4 pg (27.0-33.0); MEAN CORPUSCULAR HGB CONC 31.8 g/dl (32.0-36.5); MEAN CORPUSCULAR VOLUME 89.3 fl (80.0-96.0); MONO # 0.5 10^3/uL (0.0-0.8); MONO % 6.5 % (2.0-8.0); NEUTROPHILS # 5.4 10^3/uL (1.5-8.5); NEUTROPHILS % 73.8 % (36.0-66.0); PLATELET COUNT, AUTOMATED 272 10^3/uL (150-450); RED BLOOD COUNT 3.45 10^6/uL (4.00-5.40); WHITE BLOOD COUNT 7.3 10^3/uL (4.0-10.0)
[2023-05-07 19:10] LABS: AMYLASE 22 U/L (30-118)
[2023-05-07 19:11] LABS: ALBUMIN 2.6 G/DL (3.2-5.2); ALKALINE PHOSPHATASE 105 U/L (46-116); ALT/SGPT < 9 U/L (7.0-40); AST/SGOT 9 U/L (<34); BILIRUBIN,TOTAL 0.4 MG/DL (0.3-1.2); BLOOD UREA NITROGEN 22 MG/DL (9-23); CALCIUM LEVEL 7.6 MG/DL (8.3-10.6); CARBON DIOXIDE LEVEL 28 MMOL/L (20-31); CHLORIDE LEVEL 106 MMOL/L (98-107); CREATININE FOR GFR 0.82 MG/DL (0.55-1.30); GLOMERULAR FILTRATION RATE > 60.0 (>45); GLUCOSE, FASTING 103 MG/DL (74-106); MAGNESIUM LEVEL 2.3 MG/DL (1.8-2.4); POTASSIUM SERUM 4.4 MMOL/L (3.5-5.1); SODIUM LEVEL 140 MMOL/L (136-145); TOTAL PROTEIN 5.8 G/DL (5.7-8.2)
== END ==
LOC: M SFHCCLAY 15:01
PROVIDERS: ATTEND Nurse Practitioner Family
DX: I31.39 Other pericardial effusion (noninflammatory) (principal); R18.8 Other ascites; K59.00 Constipation, unspecified; Z79.899 Other long term (current) drug therapy; Z79.82 Long term (current) use of aspirin; Z79.01 Long term (current) use of anticoagulants; Z80.9 Family history of malignant neoplasm, unspecified; Z87.891 Personal history of nicotine dependence

== ENCOUNTER → 2023-05-16 | Outpatient (CLI) | payer MEDICARE | LOC: M PLAIMG 07:36 | PROVIDERS: ATTEND Nurse Practitioner Family | DX: I31.39 Other pericardial effusion (noninflammatory) (principal) ==

== ENCOUNTER → 2023-05-17 | Outpatient (CLI) | payer MEDICARE ==
[~2023-05-17] MED LIST changes: +PROHANCE 279.3MG/ML 5ML VIAL ONE
== END ==
LOC: M PLAIMG 09:25
PROVIDERS: ATTEND Nurse Practitioner Family
DX: R18.8 Other ascites (principal)
CPT/HCPCS: 74183; A9576

== ENCOUNTER 2023-06-04 15:10 | Emergency (ER) | payer MEDICARE ==
[~2023-06-04] VITALS: Ht 157.5 cm; Wt 59.1 kg
[~2023-06-04 15:10] MED LIST changes: -PROHANCE 279.3MG/ML 5ML VIAL ONE
[2023-06-04 15:11] VITALS: TEMP 98.8
[2023-06-04 16:50] LABS: BASO % 0.3 % (0.0-1.0); EOS # 0.1 10^3/uL (0.0-0.5); EOS % 1.3 % (0.0-3.0); HEMATOCRIT 26.2 % (36.0-47.0); HEMOGLOBIN 8.2 g/dl (12.0-15.5); LYMPH # 1.2 10^3/uL (1.5-5.0); LYMPH % 19.5 % (24.0-44.0); MEAN CORPUSCULAR HEMOGLOBIN 26.4 pg (27.0-33.0); MEAN CORPUSCULAR HGB CONC 31.3 g/dl (32.0-36.5); MEAN CORPUSCULAR VOLUME 84.2 fl (80.0-96.0); MONO # 0.4 10^3/uL (0.0-0.8); MONO % 6.2 % (2.0-8.0); NEUTROPHILS # 4.5 10^3/uL (1.5-8.5); NEUTROPHILS % 72.4 % (36.0-66.0); PLATELET COUNT, AUTOMATED 220 10^3/uL (150-450); RED BLOOD COUNT 3.11 10^6/uL (4.00-5.40); WHITE BLOOD COUNT 6.2 10^3/uL (4.0-10.0)
[2023-06-04] MEDS ORDERED: ISOVUE-370 76% 100ML VIAL As Ordered ONE (17:06)
[2023-06-04 17:10] LABS: INR 1.14; PARTIAL THROMBOPLASTIN TIME 36.1 SECONDS (24.8-34.2); PROTHROMBIN TIME 14.3 SECONDS (12.5-14.5)
[2023-06-04 17:21] LABS: LIPASE 45 U/L (12-53)
[2023-06-04 17:23] LABS: ALBUMIN 2.5 G/DL (3.2-5.2); ALKALINE PHOSPHATASE 86 U/L (46-116); ALT/SGPT < 9 U/L (7.0-40); AMYLASE 26 U/L (30-118); AST/SGOT 10 U/L (<34); BILIRUBIN,DIRECT 0.1 MG/DL (<0.4); BILIRUBIN,TOTAL 0.2 MG/DL (0.3-1.2); BLOOD UREA NITROGEN 25 MG/DL (9-23); CALCIUM LEVEL 7.5 MG/DL (8.3-10.6); CARBON DIOXIDE LEVEL 24 MMOL/L (20-31); CHLORIDE LEVEL 108 MMOL/L (98-107); CPK CREATINE PHOSPHOKINASE 23 U/L (34-145); CREATININE FOR GFR 0.67 MG/DL (0.55-1.30); GLOMERULAR FILTRATION RATE > 60.0 (>45); GLUCOSE, FASTING 98 MG/DL (74-106); MB/CK RELATIVE INDEX 4.34 (< OR =4); POTASSIUM SERUM 4.8 MMOL/L (3.5-5.1); SODIUM LEVEL 138 MMOL/L (136-145); TOTAL PROTEIN 5.5 G/DL (5.7-8.2)
[2023-06-04 17:24] LABS: THYROID STIMULATING HORMONE 7.141 uIU/ML (0.55-4.78)
[2023-06-04 17:26] LABS: FREE T4 0.75 NG/DL (0.89-1.76)
[2023-06-04 18:25] LABS: MB/CK RELATIVE INDEX 2.56 (< OR =4)
[2023-06-04 19:12] VITALS: BP 116/79; O2SAT 100
[2023-06-05] MEDS ORDERED: AIMO70IN2 (11:01)
[2023-06-05] MEDS ORDERED: DOCU100C16 (11:01)
[2023-06-05] MEDS ORDERED: XARE2.5T (11:01)
[2023-06-05] MEDS ORDERED: PREG75CA3 (11:01)
[2023-06-05] MEDS ORDERED: MEMA10TA (11:01)
[2023-06-05] MEDS ORDERED: PARACENTESIS (16:36)
[2023-06-05] MEDS ORDERED: [UNRECOGNIZED DRUG - REMARK] (17:05)
== END 2023-06-04 19:35 | disposition home or self-care (01) ==
LOC: M ED 15:10
DX: J90 Pleural effusion, not elsewhere classified (principal); R18.8 Other ascites; I31.39 Other pericardial effusion (noninflammatory); R00.0 Tachycardia, unspecified; E03.9 Hypothyroidism, unspecified; F17.210 Nicotine dependence, cigarettes, uncomplicated; Z79.1 Long term (current) use of non-steroidal anti-inflammatories (NSAID); Z79.899 Other long term (current) drug therapy
CPT/HCPCS: 36415; 71045; 71275; 74177; 80047; 80048; 80076; 82150; 82550; 82553; 83605; 83690; 83880; 84439; 84443; 84484; 85025; 85610; 85730; 86850; 86900; 86901; 87040; 93005; 93041; 99284; G0463; Q9967

== ENCOUNTER 2023-06-05 10:50 | Emergency (ER) | payer MEDICARE ==
[~2023-06-05] VITALS: Ht 157.5 cm; Wt 59.1 kg
[2023-06-05] MEDS ORDERED: XARE2.5T (11:01)
[2023-06-05] MEDS ORDERED: PREG75CA3 (11:01)
[2023-06-05] MEDS ORDERED: AIMO70IN2 (11:01)
[2023-06-05] MEDS ORDERED: MEMA10TA (11:01)
[2023-06-05] MEDS ORDERED: DOCU100C16 (11:01)
[2023-06-05 11:58] LABS: BASO % 0.5 % (0.0-1.0); EOS % 0.7 % (0.0-3.0); HEMATOCRIT 31.2 % (36.0-47.0); HEMOGLOBIN 9.6 g/dl (12.0-15.5); LYMPH # 1.2 10^3/uL (1.5-5.0); LYMPH % 27.6 % (24.0-44.0); MEAN CORPUSCULAR HEMOGLOBIN 26.4 pg (27.0-33.0); MEAN CORPUSCULAR HGB CONC 30.8 g/dl (32.0-36.5); MONO # 0.3 10^3/uL (0.0-0.8); MONO % 5.8 % (2.0-8.0); NEUTROPHILS # 2.8 10^3/uL (1.5-8.5); NEUTROPHILS % 65.2 % (36.0-66.0); RED BLOOD COUNT 3.63 10^6/uL (4.00-5.40); WHITE BLOOD COUNT 4.3 10^3/uL (4.0-10.0)
[2023-06-05 12:28] LABS: ALBUMIN 2.6 G/DL (3.2-5.2); ALKALINE PHOSPHATASE 87 U/L (46-116); ALT/SGPT < 9 U/L (7.0-40); AST/SGOT 17 U/L (<34); BILIRUBIN,DIRECT 0.1 MG/DL (<0.4); BILIRUBIN,TOTAL 0.2 MG/DL (0.3-1.2); CK-MB VALUE MASS 1.6 NG/ML (<3.6); CPK CREATINE PHOSPHOKINASE 101 U/L (34-145); MB/CK RELATIVE INDEX 1.58 (< OR =4); TOTAL PROTEIN 5.8 G/DL (5.7-8.2)
[2023-06-05] MEDS ORDERED: MORPHINE 4 MG/ML 1ML VIAL IV ONE (12:30)
[2023-06-05] MEDS ORDERED: ONDANSETRON 4MG 2ML VIAL IV ONE (12:30)
[2023-06-05] MEDS ORDERED: PARACENTESIS (16:36)
[2023-06-05] MEDS ORDERED: [UNRECOGNIZED DRUG - REMARK] (17:05)
[2023-06-05 17:06] VITALS: BP 119/58; TEMP 98.5; O2SAT 98
== END 2023-06-05 17:46 | disposition home or self-care (01) ==
LOC: M ED 10:50
DX: R18.8 Other ascites (principal); E78.5 Hyperlipidemia, unspecified; E03.9 Hypothyroidism, unspecified; Z79.1 Long term (current) use of non-steroidal anti-inflammatories (NSAID); Z79.899 Other long term (current) drug therapy

== ENCOUNTER → 2023-06-06 | Outpatient (CLI) | payer MEDICARE ==
[~2023-06-06] MED LIST changes: +AIMO70IN2; +DOCU100C16; +MEMA10TA; +PARACENTESIS; +PREG75CA3; +XARE2.5T; +[UNRECOGNIZED DRUG - REMARK]
[2023-06-06 07:25] VITALS: TEMP 99.2
[2023-06-06 08:45] VITALS: BP 136/65; O2SAT 100
[2023-06-06 09:49] LABS: ASCITES FL COLOR PALE YELLOW (COLORLESS); SOURCE, BODY FLUID ASCITES
[2023-06-06 09:50] LABS: APPEARANCE, BODY FLUID CLEAR (CLEAR)
[2023-06-06 09:59] LABS: SOURCE, BODY FLUID ALBUMIN ASCITES
[2023-06-06 10:04] LABS: SOURCE, BODY FLUID GLUCOSE ASCITES
[2023-06-06 10:06] LABS: SOURCE, BODY FLUID TOT PROTEIN ASCITES; TOTAL PROTEIN, BODY FLUID 2.9 G/DL (NOT ESTABLISHED)
== END ==
LOC: M IRPRO 07:17
PROVIDERS: ATTEND Physician Assistant Medical
DX: R18.8 Other ascites (principal)

== ENCOUNTER → 2023-06-18 | Outpatient (REF) | payer MEDICARE | LOC: M LABDRAWC 10:52 | PROVIDERS: ATTEND Internal Medicine Gastroenterology | DX: R18.8 Other ascites (principal); R16.0 Hepatomegaly, not elsewhere classified; R19.4 Change in bowel habit; R19.7 Diarrhea, unspecified; R93.2 Abnormal findings on diagnostic imaging of liver and biliary tract; R93.3 Abnormal findings on diagnostic imaging of other parts of digestive tract ==

== ENCOUNTER → 2023-06-21 | Outpatient (REF) | payer MEDICARE ==
[2023-06-21 12:02] LABS: INR 1.57; PROTHROMBIN TIME 18.2 SECONDS (12.5-14.5)
[2023-06-21 12:30] LABS: ALBUMIN 2.8 G/DL (3.2-5.2); ALKALINE PHOSPHATASE 102 U/L (46-116); ALT/SGPT 10 U/L (7.0-40); AST/SGOT 8 U/L (<34); BILIRUBIN,DIRECT 0.2 MG/DL (<0.4); BILIRUBIN,TOTAL 0.3 MG/DL (0.3-1.2); BLOOD UREA NITROGEN 17 MG/DL (9-23); CALCIUM LEVEL 7.6 MG/DL (8.3-10.6); CARBON DIOXIDE LEVEL 29 MMOL/L (20-31); CHLORIDE LEVEL 103 MMOL/L (98-107); CREATININE FOR GFR 0.93 MG/DL (0.55-1.30); GLOMERULAR FILTRATION RATE > 60.0 (>45); GLUCOSE, FASTING 162 MG/DL (74-106); IRON (FE) 13 UG/DL (50-170); PERCENT SATURATION 5.3 % (13.2-45.0); POTASSIUM SERUM 4.5 MMOL/L (3.5-5.1); SODIUM LEVEL 140 MMOL/L (136-145); TOTAL IRON BINDING CAPACITY 244 UG/DL (250-425); TOTAL PROTEIN 6.1 G/DL (5.7-8.2)
[2023-06-21 12:31] LABS: FERRITIN 89.5 NG/ML (7.3-270.7)
[2023-06-21 12:37] LABS: HEPATITIS B SURFACE ANTIBODY POSITIVE (POSITIVE)
[2023-06-21 12:49] LABS: HEPATITIS B SURFACE ANTIGEN NEGATIVE (NEGATIVE)
[2023-06-21 13:10] LABS: HEPATITIS C VIRUS ABY INDEX < 0.02 INDEX (<0.8)
[2023-06-22 16:08] LABS: CERULOPLASMIN 27.7 mg/dL (19.0-39.0)
[2023-06-25 17:07] LABS: ALPHA 1 ANTITRYPSIN 286 mg/dL (101-187); ANTI-MITOCHONDRIAL ANTIBODY <20.0 Units (0.0-20.0); ANTINUCLEAR ANTIBODIES DIRECT Negative (Negative); HEPATITIS A IgG TOTAL Negative (Negative); LIVER-KIDNEY MICROSOMAL ABY <20.1 Units (0.0-20.0); TISSUE TRANSGLUTAMINASE IgA <2 U/mL (0-3)
== END ==
LOC: M LABDRAWC 10:47
PROVIDERS: ATTEND Internal Medicine Gastroenterology
DX: R18.8 Other ascites (principal); R16.0 Hepatomegaly, not elsewhere classified; R19.4 Change in bowel habit; R19.7 Diarrhea, unspecified; R93.2 Abnormal findings on diagnostic imaging of liver and biliary tract; R93.3 Abnormal findings on diagnostic imaging of other parts of digestive tract; Z86.39 Personal history of other endocrine, nutritional and metabolic disease; Z11.59 Encounter for screening for other viral diseases; Z72.89 Other problems related to lifestyle

== ENCOUNTER → 2023-07-02 | Outpatient (REF) | payer MEDICARE ==
[2023-07-02 17:52] LABS: HEMATOCRIT 29.8 % (36.0-47.0); HEMOGLOBIN 9.3 g/dl (12.0-15.5); MEAN CORPUSCULAR HEMOGLOBIN 26.1 pg (27.0-33.0); MEAN CORPUSCULAR HGB CONC 31.2 g/dl (32.0-36.5); MEAN CORPUSCULAR VOLUME 83.5 fl (80.0-96.0); PLATELET COUNT, AUTOMATED 324 10^3/uL (150-450); RED BLOOD COUNT 3.57 10^6/uL (4.00-5.40); WHITE BLOOD COUNT 6.8 10^3/uL (4.0-10.0)
== END ==
LOC: M LABDRAWC 16:57
PROVIDERS: ATTEND Surgery
DX: D64.9 Anemia, unspecified (principal)

== ENCOUNTER → 2023-07-22 | Outpatient (REF) | payer MEDICARE ==
[2023-07-22 17:23] LABS: BASO % 0.3 % (0.0-1.0); EOS % 0.5 % (0.0-3.0); HEMATOCRIT 29.9 % (36.0-47.0); HEMOGLOBIN 9.4 g/dl (12.0-15.5); LYMPH # 1.1 10^3/uL (1.5-5.0); LYMPH % 16.1 % (24.0-44.0); MEAN CORPUSCULAR HGB CONC 31.4 g/dl (32.0-36.5); MEAN CORPUSCULAR VOLUME 82.6 fl (80.0-96.0); MONO # 0.4 10^3/uL (0.0-0.8); MONO % 5.3 % (2.0-8.0); NEUTROPHILS # 5.1 10^3/uL (1.5-8.5); NEUTROPHILS % 77.5 % (36.0-66.0); PLATELET COUNT, AUTOMATED 244 10^3/uL (150-450); RED BLOOD COUNT 3.62 10^6/uL (4.00-5.40); WHITE BLOOD COUNT 6.6 10^3/uL (4.0-10.0)
[2023-07-22 17:28] LABS: IRON (FE) 22 UG/DL (50-170)
[2023-07-22 17:29] LABS: ALBUMIN 2.8 G/DL (3.2-5.2); ALKALINE PHOSPHATASE 92 U/L (46-116); ALT/SGPT < 9 U/L (7.0-40); AST/SGOT < 8 U/L (<34); BILIRUBIN,TOTAL 0.3 MG/DL (0.3-1.2); BLOOD UREA NITROGEN 47 MG/DL (9-23); CALCIUM LEVEL 7.3 MG/DL (8.3-10.6); CARBON DIOXIDE LEVEL 24 MMOL/L (20-31); CHLORIDE LEVEL 106 MMOL/L (98-107); GLOMERULAR FILTRATION RATE 43.4 (>45); GLUCOSE, FASTING 142 MG/DL (74-106); MAGNESIUM LEVEL 2.3 MG/DL (1.8-2.4); PERCENT SATURATION 9.9 % (13.2-45.0); SODIUM LEVEL 137 MMOL/L (136-145); TOTAL IRON BINDING CAPACITY 223 UG/DL (250-425); TOTAL PROTEIN 5.9 G/DL (5.7-8.2)
[2023-07-22 17:32] LABS: FERRITIN 76.8 NG/ML (7.3-270.7)
== END ==
LOC: M LABDRAWC 16:33
PROVIDERS: ATTEND Internal Medicine Gastroenterology
DX: R93.2 Abnormal findings on diagnostic imaging of liver and biliary tract (principal); D50.9 Iron deficiency anemia, unspecified

== ENCOUNTER → 2023-08-16 | Outpatient (CLI) | payer MEDICARE ==
[~2023-08-16] MED LIST changes: +GASTROGRAFIN SOLUTION 30ML As Ordered ONE; +ISOVUE-370 76% 100ML VIAL As Ordered ONE
== END ==
LOC: M RAD 14:50
PROVIDERS: ATTEND Nurse Practitioner Family
DX: K80.20 Calculus of gallbladder without cholecystitis without obstruction (principal); R18.8 Other ascites; R16.2 Hepatomegaly with splenomegaly, not elsewhere classified
CPT/HCPCS: 74178; Q9963; Q9967

== ENCOUNTER → 2023-08-23 | Outpatient (CLI) | payer MEDICARE ==
[~2023-08-23] MED LIST changes: -GASTROGRAFIN SOLUTION 30ML As Ordered ONE; -ISOVUE-370 76% 100ML VIAL As Ordered ONE
[2023-08-23 10:25] VITALS: TEMP 98
[2023-08-23 11:16] VITALS: BP 84/51; O2SAT 100
[2023-08-23 12:34] LABS: SOURCE, BODY FLUID GLUCOSE ASCITES; SOURCE, BODY FLUID LIPASE ASCITES
[2023-08-23 12:35] LABS: LDH, BODY FLUID 86 U/L (NOT ESTABLISHED); SOURCE, BODY FLUID LDH ASCITES
[2023-08-23 12:36] LABS: AMYLASE, BODY FLUID 22 U/L (NOT ESTABLISHED); BILIRUBIN,TOTAL BF 0.4 MG/DL (NOT ESTABLISHED); SOURCE, BODY FLUID AMYLASE ASCITES; SOURCE, BODY FLUID TOT BILIRU ASCITES; SOURCE, BODY FLUID TOT PROTEIN ASCITES
[2023-08-23 13:09] LABS: APPEARANCE, BODY FLUID CLOUDY (CLEAR); ASCITES FL COLOR AMBER (COLORLESS); SOURCE, BODY FLUID ASCITES
== END ==
LOC: M IRPRO 10:00
PROVIDERS: ATTEND Nurse Practitioner Family
DX: R18.8 Other ascites (principal)

== ENCOUNTER 2023-08-30 12:56 | Inpatient (IN) | payer MEDICARE ==
[~2023-08-30] VITALS: Ht 157.5 cm; Wt 50.1 kg
[2023-08-30] VITALS (10 sets, daily range): BP systolic 93–120; BP diastolic 46–60; TEMP 99; O2SAT 98–100
[~2023-08-30 12:56] MED LIST changes: -AIMO70IN2; +AIMO70IN2 SC; -DOCU100C16; +DOCU100C16 PO; -PREG75CA3; +PREG75CA3 PO; -XARE2.5T; +XARE2.5T PO
[2023-08-30] MEDS ORDERED: XIFA550T PO (13:14)
[2023-08-30] MEDS ORDERED: SPIR50TA4 PO (13:14)
[2023-08-30] MEDS ORDERED: FURO40TA2 PO (13:14)
[2023-08-30 14:49] LABS: BASO % 0.1 % (0.0-1.0); HEMATOCRIT 28.2 % (36.0-47.0); HEMOGLOBIN 8.9 g/dl (12.0-15.5); LYMPH # 1.4 10^3/uL (1.5-5.0); LYMPH % 16.7 % (24.0-44.0); MEAN CORPUSCULAR HEMOGLOBIN 26.3 pg (27.0-33.0); MEAN CORPUSCULAR HGB CONC 31.6 g/dl (32.0-36.5); MEAN CORPUSCULAR VOLUME 83.4 fl (80.0-96.0); MONO # 0.3 10^3/uL (0.0-0.8); MONO % 3.4 % (2.0-8.0); NEUTROPHILS # 6.8 10^3/uL (1.5-8.5); NEUTROPHILS % 79.4 % (36.0-66.0); PLATELET COUNT, AUTOMATED 113 10^3/uL (150-450); RED BLOOD COUNT 3.38 10^6/uL (4.00-5.40); WHITE BLOOD COUNT 8.6 10^3/uL (4.0-10.0)
[2023-08-30 14:51] LABS: VENOUS BASE EXCESS -17.7 (-2.0-2.0); VENOUS HCO3 10.3 MMOL/L (23.0-27.0); VENOUS O2 SATURATION 74.7 % (60.0-80.0); VENOUS PARTIAL PRESSURE CO2 31.9 mmHg (38.0-50.0); VENOUS PARTIAL PRESSURE O2 48.7 mmHg (30.0-50.0); VENOUS PH 7.125 UNITS (7.330-7.430); VENOUS STANDARD HCO3 10.7 MMOL/L; VENOUS TOTAL CO2 11.2 MMOL/L (24.0-28.0)
[2023-08-30 15:09] LABS: FREE T4 0.16 NG/DL (0.89-1.76); PROLACTIN 76.76 NG/ML
[2023-08-30] MEDS: NS 1,000 ML IV ONE ×2 (15:09)
[2023-08-30] MEDS ORDERED: SODIUM BICARBONATE 8.4% INJ 50ML SYRINGE As Ordered ONE (15:10)
[2023-08-30] MEDS: SODIUM BICARBONATE 8.4% INJ 50ML SYRINGE IV STA (15:11)
[2023-08-30] MEDS: NS 1,000 ML IV SCH (15:19)
[2023-08-30 15:23] LABS: THYROID STIMULATING HORMONE 16.663 uIU/ML (0.55-4.78)
[2023-08-30] MEDS: NOREPINEPHRINE 4MG IN D5 250ML 4 MG in IV 1 EA IV SCH ×2 (15:23→22:03)
[2023-08-30 15:38] LABS: APPEARANCE, URINE CLOUDY (CLEAR); BACTERIA, URINE AUTO 2+ (NEGATIVE); BILIRUBIN, URINE AUTO NEGATIVE (NEGATIVE); BLOOD, URINE BLOOD 3+ (NEGATIVE); COLOR, URINE YELLOW (YELLOW); GLUCOSE, URINE (UA) AUTO NEGATIVE (NEGATIVE); KETONE, URINE AUTO NEGATIVE (NEGATIVE); LEUKOCYTE ESTERASE, URINE AUTO 3+ (NEGATIVE); MUCUS, URINE SMALL (NEGATIVE); NITRITE, URINE AUTO NEGATIVE (NEGATIVE); PROTEIN, URINE AUTO 2+ mg/dL (NEGATIVE); RBC, URINE AUTO TNTC /HPF (0-3); SPECIFIC GRAVITY URINE AUTO 1.012 (1.002-1.035); SQUAMOUS EPITHELIAL CELL UR AU 1 /HPF (0-6); TRANSITIONAL EPITHELIAL AUTO 4 /HPF; UROBILINOGEN, URINE AUTO 0.2 mg/dL (0.0-2.0); WBC, URINE AUTO 132 /HPF (0-3)
[2023-08-30] MEDS ORDERED: CEFEPIME 2GM VIAL (MAXIPIME) As Ordered ONE (16:04)
[2023-08-30] MEDS: CEFEPIME HCL 2 GM in D5W MINI-BAG PLUS 50 ML IV ONE (16:09)
[2023-08-30 17:23] LABS: ALBUMIN 2.5 G/DL (3.2-5.2); BILIRUBIN,TOTAL 0.2 MG/DL (0.3-1.2); CALCIUM LEVEL 4.5 MG/DL (8.3-10.6); CREATININE FOR GFR 2.57 MG/DL (0.55-1.30); GLOMERULAR FILTRATION RATE 19.7 (>45); POTASSIUM SERUM 6.4 MMOL/L (3.5-5.1); TOTAL PROTEIN 5.6 G/DL (5.7-8.2)
[2023-08-30] MEDS ORDERED: ASPI81TA26 PO (17:54)
[2023-08-30] MEDS ORDERED: FERR1TAB8 PO (17:54)
[2023-08-30] MEDS ORDERED: ATOR80TA59 PO (17:54)
[2023-08-30] MEDS ORDERED: HOME MED LIST COMPLETE! XX SCH (17:55)
[2023-08-30] MEDS: CALCIUM GLUCONATE 1,000 MG in D5W MINI-BAG PLUS 100 ML IV ONE ×2 (18:00→19:07)
[2023-08-30] MEDS ORDERED: DOCUSATE SODIUM 100MG CAPSULE PO PRN (18:15)
[2023-08-30 18:39] LABS: CREATININE FOR GFR 2.64 MG/DL (0.55-1.30); GLOMERULAR FILTRATION RATE 19.1 (>45); PHOSPHORUS LEVEL 10.6 MG/DL (2.4-5.1); POTASSIUM SERUM 6.3 MMOL/L (3.5-5.1)
[2023-08-30] MEDS: SOD POLYSTYRENE SULFONATE SUSP 15GM 60ML UD PO STA (19:00)
[2023-08-30] MEDS: DEXTROSE 50% 50ML SYRINGE IV STA (19:00)
[2023-08-30] MEDS: HumuLIN R (REGULAR) INSULIN (NovoLIN R) **100U/ML** PER UNIT IV STA (19:03)
[2023-08-30] MEDS: HYDROCORTISONE 100MG/2ML VIAL IV SCH (19:04)
[2023-08-30 21:00] LABS: VENOUS BASE EXCESS -14.5 (-2.0-2.0); VENOUS HCO3 11.3 MMOL/L (23.0-27.0); VENOUS O2 SATURATION 87.3 % (60.0-80.0); VENOUS PARTIAL PRESSURE CO2 26.6 mmHg (38.0-50.0); VENOUS PARTIAL PRESSURE O2 60.2 mmHg (30.0-50.0); VENOUS PH 7.247 UNITS (7.330-7.430); VENOUS TOTAL CO2 12.1 MMOL/L (24.0-28.0)
[2023-08-30 21:08] LABS: HEMATOCRIT 27.6 % (36.0-47.0); HEMOGLOBIN 9.1 g/dl (12.0-15.5); MEAN CORPUSCULAR HEMOGLOBIN 26.3 pg (27.0-33.0); MEAN CORPUSCULAR VOLUME 79.8 fl (80.0-96.0); PLATELET COUNT, AUTOMATED 141 10^3/uL (150-450); RED BLOOD COUNT 3.46 10^6/uL (4.00-5.40); WHITE BLOOD COUNT 9.7 10^3/uL (4.0-10.0)
[2023-08-30 21:30] LABS: INR 1.29; PROTHROMBIN TIME 15.7 SECONDS (12.5-14.5)
[2023-08-30] MEDS: LR 1,000 ML IV ONE (21:52)
[2023-08-30] MEDS: rifAXIMin 550 MG TAB (XIFAXAN) PO SCH (21:57)
[2023-08-30] MEDS: ATORVASTATIN 20 MG TAB PO SCH (21:57)
[2023-08-30] MEDS: DULoxetine 30MG CAPSULE (CYMBALTA) PO SCH (21:58)
[2023-08-30] MEDS: LR 1,000 ML IV SCH (21:58)
[2023-08-30] MEDS: FERROUS SULFATE 325MG TAB PO SCH (21:58)
[2023-08-30] MEDS: PREGABALIN 75 MG CAP(LYRICA) PO SCH (21:58)
[2023-08-30 22:17] LABS: ALBUMIN 2.6 G/DL (3.2-5.2); BILIRUBIN,TOTAL 0.3 MG/DL (0.3-1.2); CALCIUM LEVEL 5.8 MG/DL (8.3-10.6); CREATININE FOR GFR 2.43 MG/DL (0.55-1.30); GLOMERULAR FILTRATION RATE 21.1 (>45); MAGNESIUM LEVEL 2.1 MG/DL (1.8-2.4); POTASSIUM SERUM 5.4 MMOL/L (3.5-5.1); TOTAL PROTEIN 5.7 G/DL (5.7-8.2)
[2023-08-31] VITALS (96 sets, daily range): BP systolic 75–142; BP diastolic 46–65; TEMP 98.3–98.9; O2SAT 78–100
[2023-08-31] MEDS: PATIROMER SORBITEX CALCIUM 8.4 GM POWDER PACKET (VELTASSA) PO ONE (00:11)
[2023-08-31] MEDS: CALCIUM GLUCONATE 1,000 MG in D5W MINI-BAG PLUS 100 ML IV ONE ×2 (00:12→20:08)
[2023-08-31 05:51] LABS: BASO % 0.1 % (0.0-1.0); HEMATOCRIT 23.4 % (36.0-47.0); HEMOGLOBIN 7.8 g/dl (12.0-15.5); LYMPH # 0.7 10^3/uL (1.5-5.0); LYMPH % 9.1 % (24.0-44.0); MEAN CORPUSCULAR HEMOGLOBIN 26.4 pg (27.0-33.0); MEAN CORPUSCULAR HGB CONC 33.3 g/dl (32.0-36.5); MEAN CORPUSCULAR VOLUME 79.3 fl (80.0-96.0); MONO # 0.1 10^3/uL (0.0-0.8); MONO % 0.9 % (2.0-8.0); NEUTROPHILS # 6.7 10^3/uL (1.5-8.5); NEUTROPHILS % 89.5 % (36.0-66.0); PLATELET COUNT, AUTOMATED 108 10^3/uL (150-450); RED BLOOD COUNT 2.95 10^6/uL (4.00-5.40); WHITE BLOOD COUNT 7.5 10^3/uL (4.0-10.0)
[2023-08-31] MEDS: HEPARIN SOD (PORCINE) 5000UNITS/ML 1ML VIAL/SYRINGE SQ SCH (06:00)
[2023-08-31 06:49] LABS: ALBUMIN 2.4 G/DL (3.2-5.2); BILIRUBIN,TOTAL 0.2 MG/DL (0.3-1.2); CALCIUM LEVEL 5.5 MG/DL (8.3-10.6); CREATININE FOR GFR 2.08 MG/DL (0.55-1.30); GLOMERULAR FILTRATION RATE 25.2 (>45); MAGNESIUM LEVEL 2.1 MG/DL (1.8-2.4); PHOSPHORUS LEVEL 8.1 MG/DL (2.4-5.1); POTASSIUM SERUM 5.1 MMOL/L (3.5-5.1); TOTAL PROTEIN 5.3 G/DL (5.7-8.2)
[2023-08-31] MEDS ORDERED: SENNA 8.6 MG TAB (SENOKOT) PO PRN (08:30)
[2023-08-31] MEDS: LR 1,000 ML IV SCH ×2 (08:56→20:09)
[2023-08-31] MEDS: MIRALAX *UNIT DOSE* 17GM PACKET PO SCH (09:00)
[2023-08-31] MEDS ORDERED: SPIRONOLACTONE 50 MG TAB PO SCH (09:00)
[2023-08-31] MEDS: CALCIUM CARB SUSP 1250MG/5ML UNIT DOSE CUP PO SCH (09:34)
[2023-08-31] MEDS: CLOPIDOGREL 75 MG TAB PO SCH (09:34)
[2023-08-31] MEDS: ASPIRIN 81MG ENTERIC TABLET PO SCH (09:34)
[2023-08-31 09:48] LABS: VENOUS BASE EXCESS -11.6 (-2.0-2.0); VENOUS HCO3 13.3 MMOL/L (23.0-27.0); VENOUS O2 SATURATION 97.6 % (60.0-80.0); VENOUS PARTIAL PRESSURE CO2 26.8 mmHg (38.0-50.0); VENOUS PARTIAL PRESSURE O2 124.4 mmHg (30.0-50.0); VENOUS PH 7.315 UNITS (7.330-7.430); VENOUS STANDARD HCO3 15.2 MMOL/L; VENOUS TOTAL CO2 14.2 MMOL/L (24.0-28.0)
[2023-08-31] MEDS: CEFEPIME HCL 2 GM in D5W MINI-BAG PLUS 50 ML IV SCH (16:56)
[2023-08-31 17:46] LABS: CALCIUM LEVEL 5.4 MG/DL (8.3-10.6); CREATININE FOR GFR 1.77 MG/DL (0.55-1.30); GLOMERULAR FILTRATION RATE 30.4 (>45); PHOSPHORUS LEVEL 6.6 MG/DL (2.4-5.1); POTASSIUM SERUM 4.1 MMOL/L (3.5-5.1)
[2023-09-01] VITALS (51 sets, daily range): BP systolic 83–116; BP diastolic 46–67; TEMP 97.5–98.6; O2SAT 97–100
[2023-09-01 05:31] LABS: LYMPH # 0.8 10^3/uL (1.5-5.0); LYMPH % 19.6 % (24.0-44.0); MEAN CORPUSCULAR HEMOGLOBIN 26.4 pg (27.0-33.0); MEAN CORPUSCULAR VOLUME 79.9 fl (80.0-96.0); MONO # 0.2 10^3/uL (0.0-0.8); MONO % 5.4 % (2.0-8.0); NEUTROPHILS # 3.2 10^3/uL (1.5-8.5); NEUTROPHILS % 74.3 % (36.0-66.0); RED BLOOD COUNT 2.39 10^6/uL (4.00-5.40); WHITE BLOOD COUNT 4.3 10^3/uL (4.0-10.0)
[2023-09-01 05:32] LABS: PLATELET COUNT, AUTOMATED 84 10^3/uL (150-450)
[2023-09-01 05:33] LABS: HEMOGLOBIN 6.3 g/dl (12.0-15.5)
[2023-09-01 05:34] LABS: HEMATOCRIT 19.1 % (36.0-47.0)
[2023-09-01 05:56] LABS: ALBUMIN 1.8 G/DL (3.2-5.2); BILIRUBIN,TOTAL 0.2 MG/DL (0.3-1.2); CALCIUM LEVEL 5.8 MG/DL (8.3-10.6); CREATININE FOR GFR 1.35 MG/DL (0.55-1.30); GLOMERULAR FILTRATION RATE 41.5 (>45); MAGNESIUM LEVEL 1.7 MG/DL (1.8-2.4); PHOSPHORUS LEVEL 4.7 MG/DL (2.4-5.1); POTASSIUM SERUM 3.5 MMOL/L (3.5-5.1)
[2023-09-01] MEDS ORDERED: cefTRIAXone SOD 1 GM in D5W MINI-BAG PLUS 50 ML IV SCH (09:00)
[2023-09-01] MEDS: MAG SULF 1GM/100ML (MAG RUN) 1 GM in IV 1 EA IV ONE (09:12)
[2023-09-01] MEDS: CALCIUM GLUCONATE 1,000 MG in D5W MINI-BAG PLUS 100 ML IV SCH (10:21)
[2023-09-01] MEDS: cefTRIAXone SOD 1 GM in D5W MINI-BAG PLUS 50 ML IV SCH (14:05)
[2023-09-01 17:33] LABS: EOS % 0.1 % (0.0-3.0); HEMATOCRIT 32.3 % (36.0-47.0); LYMPH # 1.3 10^3/uL (1.5-5.0); LYMPH % 15.5 % (24.0-44.0); MEAN CORPUSCULAR HEMOGLOBIN 26.6 pg (27.0-33.0); MEAN CORPUSCULAR HGB CONC 33.1 g/dl (32.0-36.5); MEAN CORPUSCULAR VOLUME 80.3 fl (80.0-96.0); MONO # 0.4 10^3/uL (0.0-0.8); MONO % 4.6 % (2.0-8.0); NEUTROPHILS # 6.7 10^3/uL (1.5-8.5); NEUTROPHILS % 79.4 % (36.0-66.0); PLATELET COUNT, AUTOMATED 102 10^3/uL (150-450); RED BLOOD COUNT 4.02 10^6/uL (4.00-5.40); WHITE BLOOD COUNT 8.4 10^3/uL (4.0-10.0)
[2023-09-01 17:44] LABS: HEMOGLOBIN 10.7 g/dl (12.0-15.5)
[2023-09-01 18:02] LABS: ALBUMIN 2.3 G/DL (3.2-5.2); BILIRUBIN,TOTAL 1.1 MG/DL (0.3-1.2); CALCIUM LEVEL 6.8 MG/DL (8.3-10.6); CREATININE FOR GFR 1.28 MG/DL (0.55-1.30); GLOMERULAR FILTRATION RATE 44.1 (>45); MAGNESIUM LEVEL 2.1 MG/DL (1.8-2.4); PHOSPHORUS LEVEL 4.5 MG/DL (2.4-5.1); POTASSIUM SERUM 3.2 MMOL/L (3.5-5.1); TOTAL PROTEIN 4.9 G/DL (5.7-8.2)
[2023-09-01] MEDS: KCL 20MEQ IN 100ML SWI (KRUN) 20 MEQ in IV 1 EA IV SCH (20:45)
[2023-09-02] VITALS (22 sets, daily range): BP systolic 80–109; BP diastolic 50–66; TEMP 97.3–98.3; O2SAT 97–100
[2023-09-02 05:38] LABS: EOS % 0.2 % (0.0-3.0); HEMATOCRIT 31.5 % (36.0-47.0); HEMOGLOBIN 10.4 g/dl (12.0-15.5); LYMPH # 1.3 10^3/uL (1.5-5.0); LYMPH % 15.1 % (24.0-44.0); MEAN CORPUSCULAR HEMOGLOBIN 26.3 pg (27.0-33.0); MEAN CORPUSCULAR VOLUME 79.5 fl (80.0-96.0); MONO # 0.4 10^3/uL (0.0-0.8); MONO % 4.1 % (2.0-8.0); NEUTROPHILS # 6.8 10^3/uL (1.5-8.5); NEUTROPHILS % 80.1 % (36.0-66.0); RED BLOOD COUNT 3.96 10^6/uL (4.00-5.40); WHITE BLOOD COUNT 8.5 10^3/uL (4.0-10.0)
[2023-09-02 05:39] LABS: PLATELET COUNT, AUTOMATED 97 10^3/uL (150-450)
[2023-09-02] MEDS: ACETAMINOPHEN 325 MG TAB PO PRN (06:01)
[2023-09-02 06:12] LABS: ALBUMIN 2.2 G/DL (3.2-5.2); BILIRUBIN,TOTAL 0.8 MG/DL (0.3-1.2); CALCIUM LEVEL 6.7 MG/DL (8.3-10.6); CREATININE FOR GFR 1.19 MG/DL (0.55-1.30); POTASSIUM SERUM 3.9 MMOL/L (3.5-5.1); TOTAL PROTEIN 4.7 G/DL (5.7-8.2)
[2023-09-02] MEDS: CALCIUM GLUCONATE 1,000 MG in D5W MINI-BAG PLUS 100 ML IV ONE (11:30)
[2023-09-02 12:15] LABS: INR 1.23; PROTHROMBIN TIME 15.1 SECONDS (12.5-14.5)
[2023-09-02 12:16] LABS: PARTIAL THROMBOPLASTIN TIME 31.5 SECONDS (24.8-34.2)
[2023-09-02] MEDS: SODIUM BICARBONATE 325 MG TAB PO SCH (19:06)
[2023-09-02] MEDS: MORPHINE 2 MG/ML 1ML VIAL IV PRN (20:08)
[2023-09-02] MEDS: LACTULOSE 20GM/30ML SYRUP UDC PO SCH (20:09)
[2023-09-03] VITALS: BP 88/54; TEMP 97; O2SAT 98
[2023-09-03 02:00] VITALS: BP 89/55
[2023-09-03 04:00] VITALS: BP 89/54; TEMP 97.4; O2SAT 98
[2023-09-03] MEDS ORDERED: ONDANSETRON 4MG 2ML VIAL IV PRN (04:20)
[2023-09-03 05:10] LABS: BASO % 0.1 % (0.0-1.0); EOS % 0.2 % (0.0-3.0); HEMATOCRIT 32.2 % (36.0-47.0); HEMOGLOBIN 10.6 g/dl (12.0-15.5); LYMPH # 1.2 10^3/uL (1.5-5.0); MEAN CORPUSCULAR HEMOGLOBIN 26.8 pg (27.0-33.0); MEAN CORPUSCULAR HGB CONC 32.9 g/dl (32.0-36.5); MEAN CORPUSCULAR VOLUME 81.5 fl (80.0-96.0); MONO # 0.5 10^3/uL (0.0-0.8); MONO % 5.2 % (2.0-8.0); NEUTROPHILS # 8.2 10^3/uL (1.5-8.5); NEUTROPHILS % 82.1 % (36.0-66.0); RED BLOOD COUNT 3.95 10^6/uL (4.00-5.40)
[2023-09-03 05:19] LABS: PLATELET COUNT, AUTOMATED 91 10^3/uL (150-450)
[2023-09-03 05:24] LABS: ERYTHROCYTE SEDIMENTATION RATE 14 mm/hr (0-30)
[2023-09-03 05:25] LABS: C REACTIVE PROTEIN QUANTITATIV 2.9 MG/DL (<1.0)
[2023-09-03 05:27] LABS: ALBUMIN 2.1 G/DL (3.2-5.2); BILIRUBIN,TOTAL 0.5 MG/DL (0.3-1.2); CALCIUM LEVEL 6.9 MG/DL (8.3-10.6); CREATININE FOR GFR 1.24 MG/DL (0.55-1.30); GLOMERULAR FILTRATION RATE 45.8 (>45); PHOSPHORUS LEVEL 3.8 MG/DL (2.4-5.1); POTASSIUM SERUM 3.9 MMOL/L (3.5-5.1); TOTAL PROTEIN 4.8 G/DL (5.7-8.2)
[2023-09-03 08:00] VITALS: BP 107/60; TEMP 98.4; O2SAT 100
[2023-09-03 11:32] LABS: TOTAL 25(OH) VITAMIN D 10.7 NG/ML (20.0-100.0)
[2023-09-03 12:00] VITALS: BP 92/55; TEMP 98.3; O2SAT 100
[2023-09-03] MEDS ORDERED: MIDODRINE 5 MG TAB PO SCH (12:00)
[2023-09-03] MEDS: CEFDINIR 300 MG CAP (OMNICEF) PO SCH (12:45)
[2023-09-03] MEDS: MORPHINE 10MG/0.5ML ORAL CONCENTRATE SOLUTION U/D SL PRN (20:40)
[2023-09-04] MEDS ORDERED: VITAMIN D 1,000 INTERNATIONAL UNITS TABLET PO SCH (09:00)
[2023-09-04] MEDS: LORazepam 1 MG TAB PO PRN (10:23)
[2023-09-05] MEDS: MORPHINE 10MG/0.5ML ORAL CONCENTRATE SOLUTION U/D SL PRN (15:34)
[2023-09-05 16:07] LABS: ANA PATTERN Nuclear, Speckled (NEGATIVE); ANA PATTERN 2 Cytoplasmic; ANA SCREEN, IFA POSITIVE (NEGATIVE); ANA TITER 1:40 titer (<1:40); ANA TITER 2 1:40 titer (NEGATIVE)
[2023-09-05] MEDS: SCOPOLAMINE 1MG TRANSDERMAL PATCH TOP PRN (21:20)
[2023-09-06] MEDS: HYOSCYAMINE SULFATE 0.125 MG SUBL TABLET PO PRN (00:06)
[2023-09-06] MEDS: MORPHINE 10MG/0.5ML ORAL CONCENTRATE SOLUTION U/D SL ONE (01:43)
== END 2023-09-06 03:40 | disposition expired | DRG 871 ==
LOC: M ED 12:56 → M ED INP 17:19 → M ICU 21:28 → M MSPAV 09-04 14:52
PROVIDERS: ADMIT Internal Medicine Pulmonary Disease; ATTEND Student in an Organized Health Care Education/Training Program
PROC: 30233N1 Transfusion of Nonautologous Red Blood Cells into Peripheral Vein, Percutaneous Approach (ICD-10-PCS; principal; 2023-09-01)
PROC: 30233J1 Transfusion of Nonautologous Serum Albumin into Peripheral Vein, Percutaneous Approach (ICD-10-PCS; 2023-09-01)
PROC: 02H633Z Insertion of Infusion Device into Right Atrium, Percutaneous Approach (ICD-10-PCS; 2023-09-01)
DX: A41.9 Sepsis, unspecified organism (principal); R65.21 Severe sepsis with septic shock; E43 Unspecified severe protein-calorie malnutrition; R18.8 Other ascites; N17.9 Acute kidney failure, unspecified; N39.0 Urinary tract infection, site not specified; E87.1 Hypo-osmolality and hyponatremia; E87.20 Acidosis, unspecified; K76.6 Portal hypertension; E03.9 Hypothyroidism, unspecified; D64.9 Anemia, unspecified; I73.9 Peripheral vascular disease, unspecified; K76.9 Liver disease, unspecified; D69.6 Thrombocytopenia, unspecified; Z51.5 Encounter for palliative care; Z66 Do not resuscitate; B96.20 Unspecified Escherichia coli [E. coli] as the cause of diseases classified elsewhere; G62.9 Polyneuropathy, unspecified; E83.51 Hypocalcemia; E87.5 Hyperkalemia; Z68.20 Body mass index [BMI] 20.0-20.9, adult; R62.7 Adult failure to thrive; Z79.82 Long term (current) use of aspirin; Z79.02 Long term (current) use of antithrombotics/antiplatelets; Z79.01 Long term (current) use of anticoagulants; Z79.899 Other long term (current) drug therapy